=== PATIENT | female | born 1970 | race Caucasian/White ===

== ENCOUNTER 2017-10-02 09:08 | Inpatient (IN) | payer OTHER ==
[~2017-10-02] VITALS: Ht 165.1 cm; Wt 76.5 kg
[~2017-10-02 09:08] MED LIST: ASPI81 PO; CEPH500C3 PO; DYAZ37.52 PO; GLUCTAB PO
[2017-10-02] MEDS ORDERED: LISI-515 PO (09:28)
[2017-10-02] MEDS ORDERED: ASPI81CH7 CHEW (09:28)
[2017-10-02 09:30] VITALS: BP 169/89; PULSE 79; RESP 16; TEMP 98.2; O2SAT 97
--- NOTE | 2017-10-02 09:42 | PD ---
HPI Chief Complaint: Numbness/Tingling Time Seen by Provider: 09:30 Travel History International Travel<30 days: No Contact w/Intl Traveler<30days: No Traveled to known affect area: No History of Present Illness HPI This 47-year-old female says she has numbness on the right side of her body. She is a yesterday she started feeling some numbness around her mouth and face. It initially seemed to be bilateral. His last night it has been on the right side of the body. She says when she was younger she is to have symptoms where she would get numbness and weakness to the point where she was unable to speak. She is often associated with severe headaches. She has not had any of these episodes for some time. She says he is currently going through menopause and has not had a period in several months. She had called her doctor yesterday she had just been started on a new cholesterol medicine and that was stopped yesterday that might be an hour allergic reaction. He has not had trouble walking. She actually walked her dog this morning with the numbness PFSH Past Medical History Hx Anticoagulant Therapy: No High Cholesterol: Yes Diabetes: Yes Patient Takes Glucophage: No Diminished Hearing: No Hypertension: Yes Tetanus Vaccination: Unknown ?: Not Past Surgical History Gynecologic Surgery: Yes (D&C, FIBROIDS REMOVED) Social History Alcohol Use: No Tobacco Use: Yes (/ PPD) Substance Use: No Allergies-Medications (Allergen,Severity, Reaction): Coded Allergies: methocarbamol (Unverified Allergy, Mild, Rash, 10/02/17) Reported Meds & Prescriptions Reported Meds & Active Scripts Active Reported Lisinopril 20 Mg Tab 20 Mg PO DAILY Aspirin Children's (Aspirin) 81 Mg Chew 81 Mg CHEW DAILY Review of Systems General / Constitutional: No: Fever, Chills Eyes: No: Diploplia HENT: No: Headaches, Vertigo Cardiovascular: No: Chest Pain or Discomfort, Palpitations Respiratory: No: Cough, Shortness of Breath Gastrointestinal: No: Vomiting Genitourinary: No: Urgency, Frequency Musculoskeletal: No: Myalgias, Arthralgias Skin: No Rash Neurologic: Positive: Sensory Disturbance Endocrine: No: Heat Intolerance, Cold Intolerance Hematologic/Lymphatic: No: Easy Bruising Physical Exam Narrative GENERAL: Well-developed female SKIN: Focused skin assessment warm/dry. HEAD: Atraumatic. Normocephalic. EYES: Pupils equal and round. No scleral icterus. No injection or drainage. ENT: No nasal bleeding or discharge. Mucous membranes pink and moist. NECK: Trachea midline. No JVD. CARDIOVASCULAR: Regular rate and rhythm. No murmur appreciated. RESPIRATORY: No accessory muscle use. Clear to auscultation. Breath sounds equal bilaterally. GASTROINTESTINAL: Abdomen soft, non-tender, nondistended. Hepatic and splenic margins not palpable. MUSCULOSKELETAL: No obvious deformities. No clubbing. No cyanosis. No edema. NEUROLOGICAL: Awake and alert. No obvious cranial nerve deficits. Motor grossly within normal limits. Normal speech. There is diminished sensation on the right side of the body PSYCHIATRIC: Appropriate mood and affect; insight and judgment normal. Data Data Last Documented VS Vital Signs Date Time Temp Pulse Resp B/P (MAP) Pulse Ox O2 Delivery O2 Flow Rate FiO2 10/02/17 12:08 67 16 173/93 (119) 99 Room Air 10/02/17 09:30 98.2 Orders Orders Complete Blood Count With Diff (10/02/17 09:37) Comprehensive Metabolic Panel (10/02/17 09:37) Urinalysis - C+S If Indicated (10/02/17 09:37) Mri Brain W/O Contrast (10/02/17 09:37) Urine Culture (10/02/17 10:23) Aspirin (Aspirin) (10/02/17 12:45) Labs Laboratory Tests Test 10/02/17 09:39 10/02/17 10:23 White Blood Count 10.4 TH/MM3 Red Blood Count 4.45 MIL/MM3 Hemoglobin 13.3 GM/DL Hematocrit 39.6 % Mean Corpuscular Volume 88.8 FL Mean Corpuscular Hemoglobin 30.0 PG Mean Corpuscular Hemoglobin Concent 33.7 % Red Cell Distribution Width 12.3 % Platelet Count 208 TH/MM3 Mean Platelet Volume 10.0 FL Neutrophils (%) (Auto) 74.0 % Lymphocytes (%) (Auto) 18.4 % Monocytes (%) (Auto) 6.1 % Eosinophils (%) (Auto) 0.5 % Basophils (%) (Auto) 1.0 % Neutrophils # (Auto) 7.7 TH/MM3 Lymphocytes # (Auto) 1.9 TH/MM3 Monocytes # (Auto) 0.6 TH/MM3 Eosinophils # (Auto) 0.1 TH/MM3 Basophils # (Auto) 0.1 TH/MM3 CBC Comment DIFF FINAL Differential Comment Blood Urea Nitrogen 12 MG/DL Creatinine 0.55 MG/DL Random Glucose 233 MG/DL Total Protein 7.1 GM/DL Albumin 3.4 GM/DL Calcium Level 8.9 MG/DL Alkaline Phosphatase 128 U/L Aspartate Amino Transf (AST/SGOT) 21 U/L Alanine Aminotransferase (ALT/SGPT) 40 U/L Total Bilirubin 0.7 MG/DL Sodium Level 136 MEQ/L Potassium Level 3.9 MEQ/L Chloride Level 102 MEQ/L Carbon Dioxide Level 25.5 MEQ/L Anion Gap 9 MEQ/L Estimat Glomerular Filtration Rate 118 ML/MIN Urine Collection Type CLEAN CATCH Urine Color YELLOW Urine Turbidity CLEAR Urine pH 6.5 Urine Specific [place] LESS/EQUAL 1.005 Urine Protein NEG mg/dL Urine Glucose (UA) 250 mg/dL Urine Ketones NEG mg/dL Urine Occult Blood NEG Urine Nitrite NEG Urine Bilirubin NEG Urine Urobilinogen 0.2 MG/DL Urine Leukocyte Esterase NEG Urine WBC 0-2 /hpf Urine Squamous Epithelial Cells 0-5 /hpf Urine Amorphous Sediment FEW Urine Bacteria MOD /hpf Microscopic Urinalysis Comment CULTURE INDICATED Urine Collection Time 1023 MDM Medical Decision Making Medical Screen Exam Complete: Yes Emergency Medical Condition: Yes Medical Record Reviewed: Yes Differential Diagnosis Differential includes CVA, multiple sclerosis Narrative Course MRI was done and shows a small focal area of infarction in the left thalamus consistent with a lacunar infarct. This is consistent with a right hemisensory deficit. She took an aspirin last night. I will prescribe one now will be admitted Diagnosis Primary Impression: Acute CVA (cerebrovascular accident) Elijah Resendiz MD Oct 02, 2017 09:42
[2017-10-02 10:10] LABS: AUTOMATED NEUTROPHIL # 7.7 TH/MM3 (1.8-7.7); BASOPHIL # 0.1 TH/MM3 (0-0.2); EOSINOPHIL # 0.1 TH/MM3 (0-0.4); EOSINOPHIL % 0.5 % (0.0-4.0); HEMATOCRIT 39.6 % (35.0-46.0); HEMOGLOBIN 13.3 GM/DL (11.6-15.3); LYMPH % 18.4 % (9.0-44.0); LYMPHOCYTE # 1.9 TH/MM3 (1.0-4.8); MEAN CELL VOLUME 88.8 FL (80.0-100.0); MEAN CORPUSCULAR HGB CONC 33.7 % (32.0-36.0); MONO % 6.1 % (0.0-8.0); MONOCYTE # 0.6 TH/MM3 (0-0.9); PLATELET COUNT 208 TH/MM3 (150-450); RED BLOOD COUNT 4.45 MIL/MM3 (4.00-5.30); RED CELL DISTRIBUTION WIDTH 12.3 % (11.6-17.2); WHITE BLOOD COUNT 10.4 TH/MM3 (4.0-11.0)
[2017-10-02 10:17] LABS: CHLORIDE 102 MEQ/L (98-107); SODIUM (NA) 136 MEQ/L (136-145)
[2017-10-02 10:21] LABS: ALBUMIN 3.4 GM/DL (3.4-5.0); BICARBONATE 25.5 MEQ/L (21.0-32.0); CALCIUM 8.9 MG/DL (8.5-10.1); GLUCOSE,RANDOM 233 MG/DL (74-106)
[2017-10-02 10:22] LABS: BLOOD UREA NITROGEN 12 MG/DL (7-18)
[2017-10-02 10:24] LABS: ALT (GPT) 40 U/L (10-53)
[2017-10-02 10:25] LABS: AST (GOT) 21 U/L (15-37); CREATININE 0.55 MG/DL (0.50-1.00); GLOMERULAR FILTRATION RATE 118 ML/MIN (>89)
[2017-10-02 10:26] LABS: TOTAL PROTEIN 7.1 GM/DL (6.4-8.2)
[2017-10-02 10:27] LABS: ALKALINE PHOSPHATASE 128 U/L (45-117)
[2017-10-02 10:29] LABS: TOTAL BILIRUBIN ADULT 0.7 MG/DL (0.2-1.0)
[2017-10-02 10:50] LABS: BILIRUBIN, URINE NEG (NEG); BLOOD, URINE NEG (NEG); GLUCOSE,URINE 250 mg/dL (NEG); KETONE, URINE NEG (NEG); NITRITE,URINE NEG (NEG); PH, URINE 6.5 (5.0-8.5); URINE COLOR YELLOW (YELLW/STRAW); URINE LEUKOCYTE ESTERASE NEG (NEG)
[2017-10-02 10:56] LABS: AMORPHOUS SEDIMENT, URINE FEW; BACTERIA, URINE MOD /hpf; SQUAMOUS EPITHELIAL CELL URINE 0-5 /hpf (0-5); WBC, URINE 0-2 /hpf (0-5)
[2017-10-02 12:08] VITALS: BP 173/93; PULSE 67; RESP 16; O2SAT 99
--- NOTE | 2017-10-02 12:24 | RADRPT ---
EXAM DATE/TIME: 10/02/2017 11:34 [facility] COMPARISON: No previous studies available for comparison. INDICATIONS : Right sided weakness. MEDICAL HISTORY : Hypertension. Diabetes mellitus type 2. SURGICAL HISTORY : Fibroids ENCOUNTER: Initial ACUITY: 2 day PAIN SCORE: 0/10 LOCATION: head TECHNIQUE: Multiplanar, multisequence MRI of the brain was performed without contrast. FINDINGS: CEREBRUM: The ventricles are normal for age. No evidence of midline shift, mass lesion, hemorrhage or acute in farction. No extraaxial fluid collections are seen. The pituitary gland and suprasellar cistern are normal in configuration. WHITE MATTER: There is scattered focal small areas of increased signal within the cerebral white matter. POSTERIOR FOSSA: The cerebellum and brainstem are intact. The 4th ventricle is midline. The cerebellopontine angle is unremarkable. The cerebellar tonsils are normal in position. DIFFUSION IMAGING: There is a small focal area of signal abnormality on the diffusion weighted images at the left thalam us. EXTRACRANIAL: The visualized portions of the orbits and paranasal sinuses are unremarkable. CONCLUSION: 1. Small focal area of infarction in the left thalamus consistent with a lacunar infarct. 2. There few scattered small areas of focal demyelination seen in the cerebral white matter. Keenan Ireland MD on October 02, 2017 at 12:20 Board Certified Radiologist. This report was verified electronically.
[2017-10-02] MEDS ORDERED: ASPIRIN 325 MG TAB PO ONE (12:45)
[2017-10-02] MEDS: ASPIRIN 325 MG TAB PO SCH (13:30)
[2017-10-02] MEDS ORDERED: ENOXAPARIN SODIUM 40 MG/0.4 ML SYRINGE SQ SCH (13:30)
--- NOTE | 2017-10-02 15:28 | RADRPT ---
EXAM DATE/TIME: 10/02/2017 14:04 [facility] COMPARISON: No previous studies available for comparison. INDICATIONS : Acute CVA. MEDICAL HISTORY : Hypertension. Hypercholesterolemia. Diabetes. SURGICAL HISTORY : D & C. Fibroidectomy. ENCOUNTER: Initial ACUITY: 1 day PAIN SCORE: 0/10 LOCATION: Bilateral neck PEAK SYSTOLIC VELOCITIES (cm/sec): ICA/CCA RATIO: Right: 1.3 Left: 1.3 ICA: Right: 107 Left: 108 CCA: Right: 81 Left: 82 ECA: Right: 97 Left: 118 VERTEBRAL: Right: 61 antegrade Left: 66 antegrade Elevated flow velocities and ICA/CCA ratios have been found to correlate with increased degrees of vessel stenosis, calculated as percentage of diameter relative to a normal segment of distal ICA/CCA FINDINGS: RIGHT CAROTID: No significant stenosis is visualized. The waveforms are within normal limits. LEFT CAROTID: No significant stenosis is visualized. The waveforms are within normal limits. VERTEBRAL ARTERIES: Antegrade flow is seen in both vertebral arteries. MISCELLANEOUS: None. CONCLUSION: 1. No evidence of hemodynamically significant lesion. Xiang Major MD on October 02, 2017 at 15:25 Board Certified Radiologist. This report was verified electronically.
[2017-10-02 15:30] LABS: CHOLESTEROL 124 MG/DL (120-200)
[2017-10-02] MEDS: ENOXAPARIN SODIUM 40 MG/0.4 ML SYRINGE SQ SCH (15:34)
[2017-10-02] MEDS: ATORVASTATIN 40 MG TAB PO SCH (15:35)
[2017-10-02 15:37] VITALS: BP 144/93; PULSE 73; RESP 16; O2SAT 97
--- NOTE | 2017-10-02 15:42 | MH ---
cc: Mike Lopez MD DATE OF ADMISSION: 10/02/2017 ADMISSION DIAGNOSES: 1. Small lacunar infarct, left thalamus. 2. Hypertension. 3. Type 2 diabetes mellitus. 4. Hyperlipidemia. PERTINENT HISTORY: This is a 47-year-old white female who started to experience some numbness around her mouth last evening. This kind of progressed to later on getting some kind of tingling, numbness in her right arm and right leg. She thought maybe her right arm may have been a little bit weak at times when she would try to lift a coffee mug. She had no weakness in the leg. No slurring of her speech. No headache, no double vision, blurred vision. She denied any palpitations of her heart. Her symptoms she thought was originally from a medication she had just started on for cholesterol. She was put on rosuvastatin and she stopped that medication, but then her symptoms came back. When her symptoms persisted, she came to the emergency room where workup showed had included MRI of the brain that showed as mentioned a lacunar type infarct in the left thalamus. She was given an aspirin 325 mg in the ED and is admitted for further evaluation and neuro consult. MEDICAL HISTORY: She had type 2 diabetes mellitus for 10 years. She only took a medication briefly in the past; she did not know the name of it. She has been on high blood pressure medication in the past, but went to the ER a few months ago and was put on lisinopril 20 mg a day for blood pressure elevation. She had run out of that before she could get in with her new physician, Dr. Sandhu, who she just saw about 2 weeks ago and he kept her on lisinopril 20 mg a day. He also had done some blood work and she states her triglycerides were very high. She did not know what her cholesterol was, but she was just given rosuvastatin 20 mg a day that she just took in the last 2 days. She was not put on any medication for diabetes, but it sounds like her hemoglobin A1c was 7.0. She is supposed to have a followup appointment with Dr. Sandhu to go over her labs. She had only been on diet for diabetes and admitted that she had not been following that closely for a while. She denies any heart disease, liver or kidney disease. No thyroid disease. No prior stroke or seizures. No cancer. PAST SURGICAL HISTORY: She has had a D and C. She had a hysteroscopy with endometrial ablation and had a uterine myomectomy in the past. ALLERGIES: Her EHR has that she has had hives with Bactrim and rash with Robaxin. MEDICATIONS: She has just been on lisinopril 20 mg a day and only took a couple doses of the rosuvastatin 20 mg before stopping it yesterday. She is not on any other medication. FAMILY HISTORY: Her mother at 33 of a stroke and possibly had hypertension. Father at 37 of lung cancer. SOCIAL HISTORY: She is . She had been once. She smokes a pack a day and only started 10 years ago. She works doing housekeeping. She has an occasional glass of wine. REVIEW OF SYSTEMS: GENERAL: No fever or chills. HEENT: No vision complaints. No sore throat. CARDIOVASCULAR: No typical angina, no heart palpitations. No orthopnea, PND. PULMONARY: No cough, hemoptysis or wheezing. GASTROINTESTINAL: No abdominal pain, nausea, vomiting, constipation, diarrhea or rectal bleeding. GENITOURINARY: No dysuria, urgency, frequency or hematuria. EXTREMITIES: Without swelling. NEUROLOGIC: As mentioned. SKIN: Without rash. PSYCHIATRIC: Without complaints. PHYSICAL EXAMINATION: GENERAL: Obese white female in no acute distress. VITAL SIGNS: Her BP has ranged from 169/89-173/93. O2 saturations in the high 90s. Pulse 67, respirations 16, temperature 98.2. HEENT: TMs are clear. Nose negative. Pupils are equal. Sclerae nonicteric. Nose without lesion. Mouth without inflammation or lesion. NECK: Without bruit. No JVD. HEART: Regular rate and rhythm. No murmur. LUNGS: Clear. ABDOMEN: Soft, nontender. No masses. EXTREMITIES: No edema. Pulses 2 plus. SKIN: Negative. NEUROLOGIC: Motor strength is equal bilaterally. Cranial nerves intact. Sensation: She did not seem to have any definite decreased sensation on her right side compared to the left. She actually seemed to think it was a little more hypersensitive when I touched her. LABORATORY DATA: Her white count was 10.4, hemoglobin 13.3, platelets 208,000. Random glucose was 233. Lipid panel is pending. TSH and vitamin B12 level is pending. Hemoglobin A1c pending. Sodium 136, potassium 3.9, chloride 102, BUN 12, creatinine 0.55, GFR 118. Urinalysis showed glucose negative for protein or ketones, 0-2 WBCs. IMAGING STUDIES: MRI brain scan result as mentioned with a lacunar type infarct on the left thalamus and some few scattered small areas of focal demyelinization seen in the cerebral white matter. ASSESSMENT: As noted. PLAN: She has been given aspirin 325 mg a day. A Neurology consult has been placed. We will maintain her on lisinopril 20 mg a day for blood pressure. We will go ahead and put her back on rosuvastatin 20 mg a day. More than likely, she will need to go back on medication for diabetes and likely will initiate metformin, but will wait a couple of days in view of her just having had imaging studies done. We will use sequential compression devices and BEATRIZ hose for deep venous thrombosis prophylaxis. 2-D echo and carotid ultrasound have been ordered. She will be monitored on telemetry. Her stroke event likely happen 24 hours ago. If her tests are negative and Neurology clears her, hopefully she may be able to be discharged tomorrow. MD NAVA Méndez/SANTI , 02:38 PM , 03:41 PM
[2017-10-02 15:55] LABS: CHOLESTEROL/ HDL RATIO 3.81 RATIO; HDL CHOLESTEROL 32.5 MG/DL (40.0-60.0); TRIGLYCERIDES 450 MG/DL (42-150)
[2017-10-02 16:47] VITALS: BP 173/81; PULSE 69; RESP 20; TEMP 98.2; O2SAT 96
[2017-10-02] MEDS ORDERED: AMLO2.5T PO (17:09)
[2017-10-02] MEDS ORDERED: ROSU1TAB8 PO (17:09)
--- NOTE | 2017-10-02 17:29 | PD.CONS ---
History of Present Illness Service Neurology Consult Requested By medical Reason for Consult stroke Primary Care Physician Maikel Sandhu DO History of Present Illness 47-year-old female admitted for stroke. presented to er with >12 hr onset rt sided numbness. no significant weakness. acute onset that she thought would go away. smokes 1/2 ppd x years. no prior hx of stroke/tia. not on any blood thinners. ct brain naicp. mri brain showed left thalamic infarct. carotid u/s negative. mother with stroke at young onset. PFSH Past Medical History Hx Anticoagulant Therapy: No High Cholesterol: Yes Diabetes: Yes Patient Takes Glucophage: No Diminished Hearing: No Hypertension: Yes Tetanus Vaccination: Unknown ?: Not Past Surgical History Gynecologic Surgery: Yes (D&C, FIBROIDS REMOVED) Social History Alcohol Use: No Tobacco Use: Yes (1/2 PPD) Substance Use: No Allergies-Medications (Allergen,Severity, Reaction): Coded Allergies: methocarbamol (Unverified Allergy, Mild, Rash, 10/02/17) Reported Meds & Prescriptions Reported Meds & Active Scripts Active Reported Lisinopril 20 Mg Tab 20 Mg PO DAILY Aspirin Children's (Aspirin) 81 Mg Chew 81 Mg CHEW DAILY Review of Systems as above and admit hp Review of Systems All other ROS: ROS reviewed as documented in chart Past Family Social History Allergies: Coded Allergies: methocarbamol (Unverified Allergy, Mild, Rash, 10/02/17) Active Ordered Medications Current Medications Medications (Trade) Dose Ordered Sig/Miguel Route Start Time Stop Time Status Last Admin (Aspirin) 325 mg DAILY PO 10/02/17 13:30 (Lovenox Inj) 40 mg DAILY@1400 SQ 10/02/17 14:00 10/02/17 15:34 (Prinivil) 20 mg DAILY PO 10/03/17 09:00 (Lipitor) 40 mg DAILY PO 10/02/17 15:00 10/02/17 15:35 Exam I&O / VS Vital Signs Date Time Temp Pulse Resp B/P (MAP) Pulse Ox O2 Delivery O2 Flow Rate FiO2 10/02/17 16:47 98.2 69 20 173/81 (111) 96 10/02/17 16:26 10/02/17 15:37 73 16 144/93 (110) 97 Room Air 10/02/17 12:08 67 16 173/93 (119) 99 Room Air 10/02/17 09:30 98.2 79 16 169/89 (115) 97 10/02/17 09:26 16 97 Room Air General: Alert and Oriented, No acute distress Eye: EOMI Respiratory: Non-labored respirations Neurologic: Alert, Oriented, Normal motor, Normal DTR's Psychiatric: Cooperative, Appropriate mood & affect Exam Comments ox 3, no aphasia, follows, rt hemisensory no drift, Review/Management Diagnosis/Plan: (1) Thalamic infarct, acute ICD Codes: I63.9 - Cerebral infarction, unspecified Status: Acute Plan: tiny left thalamic infarct likely small vessel 2/2 tob/dm/htn however, young age of onset recs aspirin f/u echo cardio eval for derek/event monitor heme eval for hypercoag state. young age and mother with stroke tobacco cessation dm/lipid/bp control wt loss/exercise (2) HTN (hypertension) ICD Codes: I10 - Essential (primary) hypertension Status: Chronic Plan: bp <120/80 long-term goal (3) Diabetes ICD Codes: E11.9 - Type 2 diabetes mellitus without complications Status: Chronic Plan: needs to control dm (4) Tobacco abuse ICD Codes: Z72.0 - Tobacco use Status: Chronic Plan: cessation d/w pt Problem Qualifiers (1) HTN (hypertension): Qualified Codes: I10 - Essential (primary) hypertension Brian Diaz MD Oct 02, 2017 17:29
--- NOTE | 2017-10-02 17:31 | RADRPT ---
EXAM DATE/TIME: 10/02/2017 15:12 [facility] COMPARISON: No previous studies available for comparison. INDICATIONS : Right sided numbness. MEDICAL HISTORY : Hypertension. Diabetes mellitus type 2. SURGICAL HISTORY : Fibroids removed. ENCOUNTER: Initial ACUITY: 2 day PAIN SCORE: 0/10 LOCATION: head Please note a normal MRA of the brain does not entirely exclude the possibility of a small aneurysm, nor the possibility of distal intracranial vessel disease. TECHNIQUE: 3D time of flight MRA was performed. Source images, multiplanar STS MIP, and 3D volume MIP reconstru ctions were reviewed. FINDINGS: Anterior circulation: Distal intracranial internal carotid arteries are patent with flow extending to the middle and anteri or cerebral arteries. There is a saccular 5 mm aneurysm arising from the distal left M1 segment at th e MCA bifurcation. Suspect at least one inferior temporal branch arises from this aneurysm. Posterior circulation: Symmetric distal vertebral arteries with flow extending to basilar artery. There is no evidence for aneurysm, vessel truncation or stenosis, and no evidence for vascular malformation. CONCLUSION: 1. 5 mm distal left M1 segment saccular aneurysm. Suspect at least one inferior temporal branch arise s from this aneurysm. Recommend CTA examination for better characterization. George Milian MD on October 02, 2017 at 17:22 Board Certified Radiologist. This report was verified electronically.
[2017-10-02 20:00] VITALS: PULSE 70
[2017-10-03] VITALS (8 sets, daily range): BP systolic 116–172; BP diastolic 59–99; PULSE 61–70; RESP 12–22; TEMP 98–98.3; O2SAT 88–97
--- NOTE | 2017-10-03 07:18 | HHI.PR ---
Subjective Remarks Still has numbness on the right side. No other complaints. Objective Vitals Vital Signs Date Time Temp Pulse Resp B/P (MAP) Pulse Ox O2 Delivery O2 Flow Rate FiO2 10/03/17 03:53 98.3 70 15 146/76 (99) 88 10/03/17 01:09 98.0 68 14 130/76 (94) 95 10/02/17 20:00 70 10/02/17 16:47 98.2 69 20 173/81 (111) 96 10/02/17 16:26 10/02/17 15:37 73 16 144/93 (110) 97 Room Air 10/02/17 12:08 67 16 173/93 (119) 99 Room Air 10/02/17 09:30 98.2 79 16 169/89 (115) 97 10/02/17 09:26 16 97 Room Air Result Diagram: 10/02/17 0939 10/02/17 0939 Other Results Laboratory Tests Test 10/02/17 09:39 10/02/17 10:23 10/02/17 16:11 White Blood Count 10.4 TH/MM3 Red Blood Count 4.45 MIL/MM3 Hemoglobin 13.3 GM/DL Hematocrit 39.6 % Mean Corpuscular Volume 88.8 FL Mean Corpuscular Hemoglobin 30.0 PG Mean Corpuscular Hemoglobin Concent 33.7 % Red Cell Distribution Width 12.3 % Platelet Count 208 TH/MM3 Mean Platelet Volume 10.0 FL Neutrophils (%) (Auto) 74.0 % Lymphocytes (%) (Auto) 18.4 % Monocytes (%) (Auto) 6.1 % Eosinophils (%) (Auto) 0.5 % Basophils (%) (Auto) 1.0 % Neutrophils # (Auto) 7.7 TH/MM3 Lymphocytes # (Auto) 1.9 TH/MM3 Monocytes # (Auto) 0.6 TH/MM3 Eosinophils # (Auto) 0.1 TH/MM3 Basophils # (Auto) 0.1 TH/MM3 CBC Comment DIFF FINAL Differential Comment Erythrocyte Sedimentation Rate 11 mm/hr Blood Urea Nitrogen 12 MG/DL Creatinine 0.55 MG/DL Random Glucose 233 MG/DL Total Protein 7.1 GM/DL Albumin 3.4 GM/DL Calcium Level 8.9 MG/DL Alkaline Phosphatase 128 U/L Aspartate Amino Transf (AST/SGOT) 21 U/L Alanine Aminotransferase (ALT/SGPT) 40 U/L Total Bilirubin 0.7 MG/DL Sodium Level 136 MEQ/L Potassium Level 3.9 MEQ/L Chloride Level 102 MEQ/L Carbon Dioxide Level 25.5 MEQ/L Anion Gap 9 MEQ/L Estimat Glomerular Filtration Rate 118 ML/MIN Triglycerides Level 450 MG/DL Cholesterol Level 124 MG/DL HDL Cholesterol 32.5 MG/DL Cholesterol/HDL Ratio 3.81 RATIO Vitamin B12 Level 259 PG/ML Thyroid Stimulating Hormone 3rd Gen 0.826 uIU/ML Urine Collection Type CLEAN CATCH Urine Color YELLOW Urine Turbidity CLEAR Urine pH 6.5 Urine Specific [place] LESS/EQUAL 1.005 Urine Protein NEG mg/dL Urine Glucose (UA) 250 mg/dL Urine Ketones NEG mg/dL Urine Occult Blood NEG Urine Nitrite NEG Urine Bilirubin NEG Urine Urobilinogen 0.2 MG/DL Urine Leukocyte Esterase NEG Urine WBC 0-2 /hpf Urine Squamous Epithelial Cells 0-5 /hpf Urine Amorphous Sediment FEW Urine Bacteria MOD /hpf Microscopic Urinalysis Comment CULTURE INDICATED Urine Collection Time 1023 Imaging Last Impressions Brain MRI 10/02/17 0937 Signed Impressions: Service Date/Time: Monday, October 02, 2017 11:34 - CONCLUSION: 1. Small focal area of infarction in the left thalamus consistent with a lacunar infarct. 2. There few scattered small areas of focal demyelination seen in the cerebral white matter. Keenan Ireland MD Head Magnetic Resonance Angiography 10/02/17 Signed Impressions: Service Date/Time: Monday, October 02, 2017 15:12 - CONCLUSION: 1. 5 mm distal left M1 segment saccular aneurysm. Suspect at least one inferior temporal branch arises from this aneurysm. Recommend CTA examination for better characterization. George Milian MD Carotid Artery Ultrasound 10/02/17 Signed Impressions: Service Date/Time: Monday, October 02, 2017 14:04 - CONCLUSION: 1. No evidence of hemodynamically significant lesion. Xiang Major MD Objective Remarks Exam: Pleasant white female in no distress. HEENT: Pupils equal, sclera nonicteric, mouth negative Neck: No JVD, no bruit Heart: RRR with no murmur Lungs: Clear Abdomen: Soft, nontender, no masses Extremities: No edema, pulses in feet good Neuro: No motor deficits, CN intact A/P Assessment and Plan Assessment: --Left thalamic infarct --Hypertension --Hypertriglyceridemia --Type 2 diabetes mellitus --Possible 5mm distal left M1 segment saccular aneurysm --Smoker--patient states she is quitting Plan: Order CTA of the head to further evaluate the aneurysm Dr Owens has seen her and asked cardiology to see her and also hematology to see her to make sure she has no hypercoagulable state. Continue aspirin. Continue Lisinopril for hypertension. I will start her on Metformin but wait at least 48 hours after imaging studies. She can be discharged when cleared by consultants. Mike Lopez MD Oct 03, 2017 07:18
--- NOTE | 2017-10-03 07:51 | PD.CONS ---
HPI Consult Requested By Primary Care Physician Maikel Sandhu DO History of Present Illness 47-year-old female with a past medical history of HTN, HLD, DM, and tobacco abuse who presented for right-sided paresthesias. The patient was found to have acute small left thalamic infarct. No other neurologic symptoms other than right-sided numbness and tingling. Due to the patient's young age, neurology has consulted us for evaluation for CHARLOTTE and event monitor. The patient denies any chest pain, shortness of breath, or palpitations. EKG and telemetry reviewed which show no A. fib or other significant arrhythmia. (Ignacio Gilmore) Review of Systems Negative except as stated in the HPI (Ignacio Gilmore) Past Family Social History Allergies: Coded Allergies: methocarbamol (Unverified Allergy, Mild, Rash, 10/02/17) Past Medical History Hypertension Hyperlipidemia Diabetes mellitus Past Surgical History She has had a D and C. She had a hysteroscopy with endometrial ablation and had a uterine myomectomy in the past. Reported Medications Reported Meds & Active Scripts Active Reported Rosuvastatin (Rosuvastatin Calcium) 20 Mg Tab 20 Mg PO HS Amlodipine (Amlodipine Besylate) 2.5 Mg Tab 2.5 Mg PO DAILY Lisinopril 20 Mg Tab 20 Mg PO DAILY Active Ordered Medications Current Medications Medications (Trade) Dose Ordered Sig/Miguel Route Start Time Stop Time Status Last Admin (Aspirin) 325 mg DAILY PO 10/02/17 13:30 (Lovenox Inj) 40 mg DAILY@1400 SQ 10/02/17 14:00 10/02/17 15:34 (Prinivil) 20 mg DAILY PO 10/03/17 09:00 (Lipitor) 40 mg DAILY PO 10/02/17 15:00 10/02/17 15:35 Family History Her mother at 33 of a stroke and possibly had hypertension. Father at 37 of lung cancer. Social History She is . She had been once. She smokes a pack a day and only started 10 years ago. She works doing housekeeping. She has an occasional glass of wine. (Ignacio Gilmore) Physical Exam Vital Signs Vital Signs Date Time Temp Pulse Resp B/P (MAP) Pulse Ox O2 Delivery O2 Flow Rate FiO2 10/03/17 03:53 98.3 70 15 146/76 (99) 88 10/03/17 01:09 98.0 68 14 130/76 (94) 95 10/02/17 20:00 70 10/02/17 16:47 98.2 69 20 173/81 (111) 96 10/02/17 16:26 10/02/17 15:37 73 16 144/93 (110) 97 Room Air 10/02/17 12:08 67 16 173/93 (119) 99 Room Air 10/02/17 09:30 98.2 79 16 169/89 (115) 97 10/02/17 09:26 16 97 Room Air Physical Exam GENERAL: Well-developed well-nourished. In no acute distress. NECK: No carotid bruits. No JVD. CARDIOVASCULAR: Regular rate and rhythm. No murmur appreciated. RESPIRATORY: No accessory muscle use. Clear to auscultation. Breath sounds equal bilaterally. MUSCULOSKELETAL: No clubbing or cyanosis. No edema. NEUROLOGICAL: Awake and alert. Normal speech. Laboratory Laboratory Tests Test 10/02/17 09:39 10/02/17 10:23 10/02/17 16:11 White Blood Count 10.4 Red Blood Count 4.45 Hemoglobin 13.3 Hematocrit 39.6 Mean Corpuscular Volume 88.8 Mean Corpuscular Hemoglobin 30.0 Mean Corpuscular Hemoglobin Concent 33.7 Red Cell Distribution Width 12.3 Platelet Count 208 Mean Platelet Volume 10.0 Neutrophils (%) (Auto) 74.0 Lymphocytes (%) (Auto) 18.4 Monocytes (%) (Auto) 6.1 Eosinophils (%) (Auto) 0.5 Basophils (%) (Auto) 1.0 Neutrophils # (Auto) 7.7 Lymphocytes # (Auto) 1.9 Monocytes # (Auto) 0.6 Eosinophils # (Auto) 0.1 Basophils # (Auto) 0.1 CBC Comment DIFF FINAL Differential Comment Erythrocyte Sedimentation Rate 11 Blood Urea Nitrogen 12 Creatinine 0.55 Random Glucose 233 Total Protein 7.1 Albumin 3.4 Calcium Level 8.9 Alkaline Phosphatase 128 Aspartate Amino Transf (AST/SGOT) 21 Alanine Aminotransferase (ALT/SGPT) 40 Total Bilirubin 0.7 Sodium Level 136 Potassium Level 3.9 Chloride Level 102 Carbon Dioxide Level 25.5 Anion Gap 9 Estimat Glomerular Filtration Rate 118 Triglycerides Level 450 Cholesterol Level 124 HDL Cholesterol 32.5 Cholesterol/HDL Ratio 3.81 Vitamin B12 Level 259 Thyroid Stimulating Hormone 3rd Gen 0.826 Urine Collection Type CLEAN CATCH Urine Color YELLOW Urine Turbidity CLEAR Urine pH 6.5 Urine Specific Rhodelia LESS/EQUAL 1.005 Urine Protein NEG Urine Glucose (UA) 250 Urine Ketones NEG Urine Occult Blood NEG Urine Nitrite NEG Urine Bilirubin NEG Urine Urobilinogen 0.2 Urine Leukocyte Esterase NEG Urine WBC 0-2 Urine Squamous Epithelial Cells 0-5 Urine Amorphous Sediment FEW Urine Bacteria MOD Microscopic Urinalysis Comment CULTURE INDICATED Urine Collection Time 1023 Date/Time Source Procedure Growth Status 10/02/17 10:23 Urine Clean Catch Urine Culture Pending Received (Ignacio Gilmore) Result Diagram: 10/02/1793810/02/17938 Imaging Last Impressions Brain MRI 10/02/17936 Signed Impressions: Service Date/Time: Monday, October 02, 2017 11:34 - CONCLUSION: 1. Small focal area of infarction in the left thalamus consistent with a lacunar infarct. 2. There few scattered small areas of focal demyelination seen in the cerebral white matter. Keenan Ireland MD Head Magnetic Resonance Angiography 10/02/17 0000 Signed Impressions: Service Date/Time: Monday, October 02, 2017 15:12 - CONCLUSION: 1. 5 mm distal left M1 segment saccular aneurysm. Suspect at least one inferior temporal branch arises from this aneurysm. Recommend CTA examination for better characterization. George Milian MD Carotid Artery Ultrasound 10/02/17 0000 Signed Impressions: Service Date/Time: Monday, October 02, 2017 14:04 - CONCLUSION: 1. No evidence of hemodynamically significant lesion. Xiang Major MD (Ignacio Gilmore) Assessment and Plan Assessment and Plan 47-year-old female with a past medical history of HTN, HLD, DM, and tobacco abuse who presented for right-sided paresthesias. The patient was found to have acute small left thalamic infarct. No other neurologic symptoms other than right-sided numbness and tingling. Due to the patient's young age, neurology has consulted us for evaluation for CHARLOTTE and event monitor. The patient denies any chest pain, shortness of breath, or palpitations. EKG and telemetry reviewed which show no A. fib or other significant arrhythmia. Acute left thalamic CVA: Will need to decide on antiplatelet/anticoagulation, will plan for inpatient CHARLOTTE for definitive eval, transfer to main hospital. Follow-up as outpatient for possible event monitor. Discussed Condition With Patient, RN, Dr. Chris (Ignacio Gilmore) Assessment and Plan CHARLOTTE - no JAMEY thrombus. No PFO. No vegetations. No cardioembolic source. DC planning from cardio standpoint FU with neuro. no need for cardio followup (Jero Chris MD) Ignacio Gilmore Oct 03, 2017 07:51 Jero Chris MD Oct 03, 2017 14:32
[2017-10-03] MEDS ORDERED: LISINOPRIL 20 MG TAB PO SCH (09:00)
[2017-10-03] MEDS: ASPIRIN 325 MG TAB PO SCH (09:04)
[2017-10-03] MEDS: ATORVASTATIN 40 MG TAB PO SCH (09:04)
--- NOTE | 2017-10-03 14:42 | ECHRPT ---
Indication: stroke CONCLUSIONS Normal left ventricular size. Wall thickness is normal. Mild mitral valve regurgitation. The pulmonary valve is not well visualized. The left ventricular systolic function is normal with an estimated ejection fraction in the range of 60-65%. BP: / HR: Rhythm: MEASUREMENTS (Male / Female) Normal Values Technical Quality: 2D ECHO LV Diastolic Diameter PLAX 4.8 cm 4.2 - 5.9 / 3.9 - 5.3 cm IVS Diastolic Thickness 0.9 cm 0.6 - 1.0 / 0.6 - 0.9 cm LVPW Diastolic Thickness 0.7 cm 0.6 - 1.0 / 0.6 - 0.9 cm LV Relative Wall Thickness 0.3 RV Internal Dim ED PLAX 1.8 cm LA Systolic Diameter LX 3.0 cm 3.0 - 4.0 / 2.7 - 3.8 cm DOPPLER Mitral E Point Velocity 66.1 cm/s Mitral A Point Velocity 84.9 cm/s Mitral E to A Ratio 0.8 TR Peak Velocity 118.0 cm/s TR Peak Gradient 5.6 mmHg FINDINGS LEFT VENTRICLE Normal left ventricular size. Wall thickness is normal. The left ventricular systolic function is normal with an estimated ejection fraction in the range of 60-65%. RIGHT VENTRICLE Normal right ventricular size and systolic function. LEFT ATRIUM The left atrial size is normal. RIGHT ATRIUM The right atrial size is normal. ATRIAL SEPTUM Normal atrial septal thickness without atrial level shunting by limited color doppler interrogation. AORTA The aortic root and proximal ascending aorta are normal in size on limited imaging. MITRAL VALVE Mild mitral valve regurgitation. AORTIC VALVE Trileaflet aortic valve. No aortic valve stenosis or regurgitation. TRICUSPID VALVE Structurally normal tricuspid valve. No tricuspid valve stenosis or regurgitation. PULMONARY VALVE The pulmonary valve is not well visualized. VESSELS The inferior vena cava is normal in size. PERICARDIUM No pericardial effusion. Jero Chris MD, FACC (Electronically Signed) Final Date:03 October 2017 14:41
--- NOTE | 2017-10-03 14:49 | ECHRPT ---
Indication: CVA/TIA CONCLUSIONS Normal left ventricular size and wall thickness. The left ventricular systolic function is normal wi th an estimated ejection fraction in the range of 60-65%. Left ventricular diastolic function parameters a re normal. Normal left atrial appendage size with no evidence of thrombus formation. Structurally normal mitral valve. Mild mitral valve regurgitation. Structurally normal tricuspid valve. There is mild tricuspid valve regurgitation. BP: / HR: Rhythm: Technical Quality: Medications Complications Proc. Components The patient was brought to the diagnostic imaging area in a fasting state after o btaining an informed consent. The patient was premedicated with IV Versed and IV Fentanyl. The stock hanger ior pharynx was sprayed with Cetacaine spray and the patient was administered viscous Xylocaine 2 %. The CHARLOTTE probe was passed into the posterior pharynx , mid-esophagus, distal esophagus, and gastric fundus. CHARLOTTE was performed at multiple levels. The patient tolerated the procedure well and there were no complications. The patient was transferred to the floor in satisfactory condition.. FINDINGS LEFT VENTRICLE Normal left ventricular size and wall thickness. The left ventricular systolic function is normal wi th an estimated ejection fraction in the range of 60-65%. Left ventricular diastolic function parameters a re normal. RIGHT VENTRICLE Normal right ventricular size and systolic function. LEFT ATRIUM The left atrial size is normal. RIGHT ATRIUM The right atrial size is normal. ATRIAL APPENDAGES Normal left atrial appendage size with no evidence of thrombus formation. ATRIAL SEPTUM Normal atrial septal thickness without atrial level shunting by limited color doppler interrogation. AORTA The aortic root and proximal ascending aorta are normal in size on limited imaging. MITRAL VALVE Structurally normal mitral valve. Mild mitral valve regurgitation. AORTIC VALVE Trileaflet aortic valve. No aortic valve stenosis or regurgitation. TRICUSPID VALVE Structurally normal tricuspid valve. There is mild tricuspid valve regurgitation. VESSELS The inferior vena cava is normal in size. PULMONARY VALVE The pulmonary valve is not well visualized. PERICADIUM No pericardial effusion. Jero Chris MD, FACC (Electronically Signed) Final Date:03 October 2017 14:49
[2017-10-03] MEDS ORDERED: LISINOPRIL 10 MG TAB PO ONE (16:15)
[2017-10-03] MEDS ORDERED: IOHEXOL 350 MG/ML 10 ML VIAL (for RAD DIAG) IVCONTRAST ONE (17:02)
[2017-10-03] MEDS: ENOXAPARIN SODIUM 40 MG/0.4 ML SYRINGE SQ SCH (17:47)
--- NOTE | 2017-10-03 18:16 | RADRPT ---
EXAM DATE/TIME: 10/03/2017 16:46 [facility] COMPARISON: MRA BRAIN W/O CONTRAST, October 02, 2017, 15:12. INDICATIONS : Patient with right arm and right side of face numbness. IV CONTRAST: 70 cc Omnipaque 350 (iohexol) IV ; Cumulative dose for multiple exams. RADIATION DOSE: 24.29 CTDIvol (mGy) ; Combined studies MEDICAL HISTORY : Cerebrovascular disease. Cardiovascular disease Diabetes mellitus type 2.hypertension SURGICAL HISTORY : None. ENCOUNTER: Initial ACUITY: 1 day PAIN SCALE: 0/10 LOCATION: cranial TECHNIQUE: Volumetric scanning was performed using a multi-row detector CT scanner. The data was post processed with a variety of visualization algorithms including full volume maximum intensity projection, multi -planar sliding thin slab reformation, curved planar reformation, and surface rendering techniques. Using automated exposure control and adjustment of the mA and/or kV according to patient size, radiat ion dose was kept as low as reasonably achievable to obtain optimal diagnostic quality images. DICO M format image data is available electronically for review and comparison. FINDINGS: Anterior circulation: Distal intracranial internal carotid arteries are patent with flow extending to the middle and anteri or cerebral arteries. Redemonstration of a saccular distal right M1 aneurysm measuring 4 x 6 mm. Ther e is significant tortuosity at this level though suspect that the inferior temporal branch arises dir ectly from the aneurysm. Posterior circulation: Symmetric distal vertebral arteries with flow extending to basilar artery. There is no evidence for aneurysm, vessel truncation or stenosis, and no evidence for vascular malformation. CONCLUSION: 1. Redemonstration of 4 x 6 mm distal right M1 aneurysm. There is significant tortuosity at this leve l though the inferior temporal branch appears to arise from the aneurysm. George Milian MD on October 03, 2017 at 17:38 Board Certified Radiologist. This report was verified electronically.
[2017-10-03 18:21] LABS: HEMOGLOBIN A1C 8.3 % (4.3-6.0)
--- NOTE | 2017-10-03 18:45 | RADRPT ---
EXAM DATE/TIME: 10/03/2017 16:46 [facility] COMPARISON: No previous studies available for comparison. INDICATIONS : Patient with numbness right arm and right side of face. IV CONTRAST: 70 cc Omnipaque 350 (iohexol) IV ; Cumulative dose for multiple exams. RADIATION DOSE: 24.29 CTDIvol (mGy) ; Combined studies MEDICAL HISTORY : Cerebrovascular disease. Cardiovascular disease Diabetes mellitus type 2.hypertension SURGICAL HISTORY : None. ENCOUNTER: Initial ACUITY: 1 day PAIN SCALE: 0/10 LOCATION: neck Elevated flow velocities and ICA/CCA ratios have been found to correlate with increased degrees of vessel stenosis, calculated as percentage of diameter relative to a normal segment of distal ICA/CCA. TECHNIQUE: Volumetric scanning was performed using a multirow detector CT scanner. The data was post processed with a variety of visualization algorithms including full-volume maximum intensity projection, multip lanar sliding thin-slab reformation, curved-planar reformation, and surface-rendering techniques. Us ing automated exposure control and adjustment of the mA and/or kV according to patient size, radiatio n dose was kept as low as reasonably achievable to obtain optimal diagnostic quality images. DICOM f ormat image data is available electronically for review and comparison. FINDINGS: Great vessel origin this are patent. Both common carotid arteries are patent. There is eccentric plaque in the proximal right internal carotid artery with minimal stenosis of her 35%. The stenosis in the left internal carotid artery. No discrete aneurysm or dissection. CONCLUSION: 1. Eccentric plaque proximal right internal carotid artery with about 35% stenosis. CTA carotids othe rwise unremarkable. Napoleon Zhou MD on October 03, 2017 at 18:39 Board Certified Radiologist. This report was verified electronically.
[2017-10-03] MEDS: LISINOPRIL 20 MG TAB PO SCH (20:40)
[2017-10-03] MEDS: INSULIN ASPART SUPPLEMENTAL SCALE SQ SCH (21:00)
--- NOTE | 2017-10-03 21:46 | EKG ---
Date Performed: 10/02/2017 Time Performed: 09:21:37 PTAGE: 47 years EKG: Sinus rhythm MODERATE VOLTAGE CRITERIA FOR LVH, CONSIDER NORMAL VARIANT NONSPECIFIC T-WAVE ABNORMALITY BORDERLINE ECG PREVIOUS TRACING : 04/02/2006 11.49 Since the previous tracing, no significant change noted DOCTOR: Reza Carrasco Interpretating Date/Time 10/03/2017 21:45:23
--- NOTE | 2017-10-03 23:48 | MB ---
cc: Piero Betancourt MD DATE: 10/03/2017 REASON FOR CONSULTATION: Consult requested by neurologist, Dr. Diaz for evaluation of hypercoagulable state in a patient who is admitted for left CVA. HISTORY OF PRESENT ILLNESS: This is a 47-year-old [facility] female. She has a history of hypertension, hypercholesterolemia and diabetes mellitus. She was in her usual status of health up until recently. She noticed a numbness at the tip of the tongue. She was recently started on cholesterol medication and she thought that she may be having some allergic reaction from that. She stopped taking the cholesterol medication. However, the numbness at the tip of the tongue remains the same. Subsequently, she noticed numbness on the right side of the body, 2 nights ago. She decided to take the aspirin and waited to go see her primary physician, Dr. Sandhu the next day. However, when she woke up in the morning, she still had weakness and numbness on the right side of the body. One of her daughters is a registered nurse. She was advised to come to the emergency room. When the patient came into the emergency room, she had an MRI of the brain which showed a left thalamic infarct. Neurology was consulted. The patient was not a candidate for the TPA since she was outside of the window for that. The patient was started on Lovenox and an aspirin. Dr. Diaz, neurologist, saw the patient. He had recommended a cardiology consult for CHARLOTTE and hematology consult for hypercoagulable state. The patient was transferred to [facility] from [facility] to see a health claims examiner for CHARLOTTE. The patient underwent CHARLOTTE today which does not show any intracardiac thrombosis or PFO. Cardiologists have signed off on the case. The patient has been on aspirin and Lovenox. She states that her numbness is improving from the right side. She is anxious to go home. The rest of the review of system is negative. The patient denies any previous history of thromboembolic disease. She does not have any family history of thromboembolic disease except her mother in her 30s from a severe stroke. PAST MEDICAL HISTORY: 1. Diabetes mellitus. 2. Hypercholesterolemia. 3. Hypertension. PAST SURGICAL HISTORY: Fibroids were removed. ALLERGIES: ROBAXIN. MEDICATIONS: Prior to coming into the hospital were lisinopril, amlodipine and rosuvastatin. FAMILY HISTORY: Mother from a stroke in her 30s. Father from lung cancer. He was a smoker. The patient has 2 daughters, one of the daughter is a registered nurse. SOCIAL HISTORY: The patient is . The patient smoked cigarettes, one pack a day for many years and she said that she is going to quit. Her last cigarette was prior to being admitted to the hospital. Drinks alcohol socially. 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 The patient was born in [facility] and moved to [facility] in [place]. PHYSICAL EXAMINATION: GENERAL: This is a well-developed, well-nourished white female, in no apparent distress. VITAL SIGNS: Temperature 98, heart rate 70, blood pressure 116/59. HEAD, EYES, EARS, NOSE, AND THROAT: Pupils equal, round, reactive to light and accommodation, extraocular movements intact. Anicteric. No oral lesions noted. No thrush noted. NECK: Supple. No JVD. No masses noted. LUNGS: Clear. No wheezing, rhonchi, or rales. HEART: Regular rate and rhythm. No murmur heard. ABDOMEN: Soft and nontender. No hepatosplenomegaly. No abnormal bowel sounds. No guarding or rigidity noted. EXTREMITIES: No pedal edema. No cyanosis, no clubbing. NEUROLOGIC: Awake, alert, oriented x 3. Sensory and motor seem to be intact. SKIN: No bruises or petechiae noted. BREASTS: No masses noted. LYMPH NODES: No cervical, supraclavicular, or axillary lymphadenopathy noted. BACK: There is no spinal tenderness noted. ASSESSMENT: Left cerebrovascular accident with right-sided paresthesias currently on Lovenox and an aspirin. PLAN: I have reviewed her available records, and I have discussed with the patient regarding her acute stroke. It is unclear at this time, the etiology. I will order the hypercoagulable panel and it will take 2 weeks to get the results. Therefore, from my standpoint, patient could be discharged and will be followed as an outpatient for her hypercoagulable workup. She has been evaluated by Dr. Diaz, neurologist. The patient is anxious to go home. After drawing blood tests tomorrow then she will discuss with neurology, Dr. Diaz for possible discharge to home. The patient's mother from major stroke in her 30s. I will see the patient back in 2-3 weeks in our office to go over the results of the hypercoagulable panel. Thank you for asking my opinion. MD CASS Moses/rt , 10:46 PM , 11:47 PM
[2017-10-04 00:15] VITALS: BP 118/62; PULSE 69; RESP 18; TEMP 98.8; O2SAT 95
[2017-10-04 03:56] VITALS: PULSE 75
[2017-10-04 05:45] VITALS: BP 120/59; PULSE 66; RESP 17; TEMP 98; O2SAT 94
[2017-10-04] MEDS: INSULIN ASPART SUPPLEMENTAL SCALE SQ SCH ×2 (08:00→12:00)
[2017-10-04 08:13] VITALS: BP 114/58; PULSE 63; RESP 20; TEMP 98; O2SAT 93
[2017-10-04] MEDS ORDERED: ASA325 PO (08:45)
[2017-10-04] MEDS ORDERED: ATOR40TA16 PO (08:45)
--- NOTE | 2017-10-04 08:58 | HHI.DS ---
Discharge Summary Admission Date Oct 02, 2017 at 12:45 Discharge Date: Oct 04, 2017 Admitting Diagnosis ACUTE CVA (1) Acute CVA (cerebrovascular accident) Diagnosis: Principal ICD Codes: I63.9 - Cerebral infarction, unspecified Status: Acute (2) Thalamic infarct, acute Diagnosis: Principal ICD Codes: I63.9 - Cerebral infarction, unspecified Status: Acute (3) Diabetes Diagnosis: Secondary ICD Codes: E11.9 - Type 2 diabetes mellitus without complications Status: Chronic (4) Tobacco abuse Diagnosis: Secondary ICD Codes: Z72.0 - Tobacco use Status: Chronic (5) HTN (hypertension) Diagnosis: Secondary ICD Codes: I10 - Essential (primary) hypertension Status: Chronic (6) Hyperlipemia Diagnosis: Secondary ICD Codes: E78.5 - Hyperlipidemia, unspecified Consultants Dr. Diaz, Neurology Dr. Chris, Cardiology Dr. Betancourt, Hematology Procedures [place] 10/03/[address] Chris Brief History This is a 47-year-old white female who started to experience some numbness around her mouth last evening. This kind of progressed to later on getting some kind of tingling, numbness in her right arm and right leg. She thought maybe her right arm may have been a little bit weak at times when she would try to lift a coffee mug. She had no weakness in the leg. No slurring of her speech. No headache, no double vision, blurred vision. She denied any palpitations of her heart. Her symptoms she thought was originally from a medication she had just started on for cholesterol. She was put on rosuvastatin and she stopped that medication, but then her symptoms came back. When her symptoms persisted, she came to the emergency room where workup showed had included MRI of the brain that showed as mentioned a lacunar type infarct in the left thalamus. She was given an aspirin 325 mg in the ED and is admitted for further evaluation and neuro consult. CBC/BMP: 10/02/17 0939 10/02/17 0939 Significant Findings Laboratory Tests Test 10/02/17 09:39 10/02/17 10:23 10/02/17 16:11 10/04/17 07:00 Neutrophils (%) (Auto) 74.0 % (16.0-70.0) Random Glucose 233 MG/DL (74-106) Alkaline Phosphatase 128 U/L (45-117) Hemoglobin A1c 8.3 % (4.3-6.0) Triglycerides Level 450 MG/DL (42-150) HDL Cholesterol 32.5 MG/DL (40.0-60.0) Urine Glucose (UA) 250 mg/dL (NEG) Urine Bacteria MOD /hpf (NONE) Imaging Last Impressions Neck CTA 10/03/17 1635 Signed Impressions: Service Date/Time: Tuesday, October 03, 2017 16:46 - CONCLUSION: 1. Eccentric plaque proximal right internal carotid artery with about 35%% stenosis. CTA carotids otherwise unremarkable. Napoleon Zhou MD Head CTA 10/03/17 1635 Signed Impressions: Service Date/Time: Tuesday, October 03, 2017 16:46 - CONCLUSION: 1. Redemonstration of 4 x 6 mm distal right M1 aneurysm. There is significant tortuosity at this level though the inferior temporal branch appears to arise from the aneurysm. George Milian MD Brain MRI 10/02/17 0937 Signed Impressions: Service Date/Time: Monday, October 02, 2017 11:34 - CONCLUSION: 1. Small focal area of infarction in the left thalamus consistent with a lacunar infarct. 2. There few scattered small areas of focal demyelination seen in the cerebral white matter. Keenan Ireland MD Head Magnetic Resonance Angiography 10/02/17 0000 Signed Impressions: Service Date/Time: Monday, October 02, 2017 15:12 - CONCLUSION: 1. 5 mm distal left M1 segment saccular aneurysm. Suspect at least one inferior temporal branch arises from this aneurysm. Recommend CTA examination for better characterization. George Milian MD Carotid Artery Ultrasound 10/02/17 0000 Signed Impressions: Service Date/Time: Monday, October 02, 2017 14:04 - CONCLUSION: 1. No evidence of hemodynamically significant lesion. Xiang Major MD PE at Discharge Exam: Pleasant white female in no distress. HEENT: Pupils equal, sclera nonicteric, mouth negative Neck: No JVD, no bruit Heart: RRR with no murmur Lungs: Clear Abdomen: Soft, nontender, no masses Extremities: No edema, pulses in feet good Neuro: No motor deficits, CN intact Hospital Course Left thalamic infarct - [place] 10/03/17- no JAMEY thrombus. No PFO. No vegetations. No cardioembolic source. - DC from cardio standpoint per cardiology no need for cardio followup - Brain MRI revealed small focal area of infarction in the thalamus consistent with a lacunar infarct. There are few scattered small areas of focal demyelination seen in the cerebral white matter. - MRA of the head reveals 5 mm distal left M one segment saccular aneurysm. Suspect at least one inferior temporal branch arises from this aneurysm. Recommend CT examination for better characterization. - CT of the head reviewed and reveals re demonstration of a 4 x 6 mm distal right M one aneurysm. There is significant tortuosity at this level though the inferior temporal branch appears to arise from the aneurysm - Carotid artery ultrasound reveals no evidence of hemodynamically significant lesion - Patient's mother secondary to CVA in her 30s - Hematology consulted for evaluation and hypercoagulable workup. Patient seen by Dr. Betancourt laboratory data ordered and collected however the results can take up to 2 weeks patient to follow up outpatient with hematology in approximately 3 weeks - Continue aspirin daily - Cleared by neurology, cleared by cardiology and cleared by Hematology - recommend patient follow up with neurosurgeon Dr. Navarro as an outpatient for surveillance of aneurysm Hypertension - Continue home lisinopril and amlodipine Hyperlipidemia - Atorvastatin 40 mg by mouth daily at bedtime Type 2 diabetes mellitus - Patient currently on sliding scale insulin coverage Will resume metformin 48 hours after contrasted scan Current tobacco abuse - patient states she is quitting - Patient counseled encouraged to abstain from tobacco completely Pt Condition on Discharge: Stable Discharge Disposition: Discharge Home Discharge Instructions DIET: Follow Instructions for: Heart Healthy Diet, Diabetic Diet Activities you can perform: Regular-No Restrictions Follow up Referrals: Neurology - 2 Weeks with Brian Diaz MD Neurosurgery - 2 Weeks with Neri Navarro MD Oncology/Hematology - 3 Weeks with Dayne Betancourt MD PCP Follow-up - [address] Sandhu New Medications: Metformin ER (Metformin ER) 500 Mg Twila 500 MG PO DAILY for Blood Sugar Management for 30 Days, #30 TAB 0 Refills With evening meal Aspirin (Px Aspirin) 325 Mg Tab 325 MG PO DAILY for Blood Clot Prevention, #30 TAB 0 Refills Atorvastatin (Atorvastatin) 40 Mg Tab 40 MG PO DAILY for Cholesterol Management, #30 TAB 0 Refills Continued Medications: Amlodipine (Amlodipine) 2.5 Mg Tab 2.5 MG PO DAILY for Blood Pressure Management, #30 TAB 0 Refills Lisinopril (Lisinopril) 20 Mg Tab 20 MG PO DAILY, #30 TAB 0 Refills Discontinued Medications: Rosuvastatin (Rosuvastatin) 20 Mg Tab 20 MG PO HS for Cholesterol Management, #30 TAB 0 Refills Additional Information Patient examined. Assessment and plan formulated with Marquita Gallo PA-C. I agree with the above. Marquita Gallo Oct 04, 2017 08:58 Joel Vasquez DO Oct 05, 2017 23:41
--- NOTE | 2017-10-04 08:59 | HHI.DCPOC ---
Discharge Care Plan Diagnosis: (1) Thalamic infarct, acute (2) Type 2 diabetes mellitus (3) Tobacco abuse (4) HTN (hypertension) Goals to Promote Your Health * To prevent worsening of your condition and complications * To maintain your health at the optimal level Directions to Meet Your Goals Take your medications as prescribed Follow your dietary instruction Follow activity as directed Keep your appointments as scheduled Take your immunizations and boosters as scheduled If your symptoms worsen call your PCP, if no PCP go to Urgent Care Center or Emergency Room Smoking is Dangerous to Your Health. Avoid second hand smoke Call the 24-hour hour crisis hotline for domestic abuse at Marquita Gallo Oct 04, 2017 08:59 Joel Vasquez DO Oct 05, 2017 23:40
--- NOTE | 2017-10-04 09:52 | HHI.PR ---
Review/Management Diagnosis/Plan: (1) Thalamic infarct, acute ICD Codes: I63.9 - Cerebral infarction, unspecified Status: Acute Plan: tiny left thalamic infarct likely small vessel 2/2 tob/dm/htn however, young age of onset recs aspirin f/u echo cardio eval- derek negative. event monitor per cards heme- f/u outpatient labs ok to d/c from neuro and outpatient f/u tobacco cessation dm/lipid/bp control wt loss/exercise (2) HTN (hypertension) ICD Codes: I10 - Essential (primary) hypertension Status: Chronic Plan: bp <120/80 long-term goal (3) Diabetes ICD Codes: E11.9 - Type 2 diabetes mellitus without complications Status: Chronic Plan: needs to control dm (4) Tobacco abuse ICD Codes: Z72.0 - Tobacco use Status: Chronic Plan: cessation d/w pt Subjective Subjective Comments No acute events reported No headache No chest pain No dyspnea Active Medications Current Medications Medications (Trade) Dose Ordered Sig/Miguel Route Start Time Stop Time Status Last Admin (Aspirin) 325 mg DAILY PO 10/02/17 13:30 10/03/17 09:04 (Lovenox Inj) 40 mg DAILY@1400 SQ 10/02/17 14:00 10/03/17 17:47 (Lipitor) 40 mg DAILY PO 10/02/17 15:00 10/03/17 09:04 (NovoLOG SUPPLEMENTAL SCALE) 1 ACHS SLIDING SCALE SQ 10/03/17 21:00 (Prinivil) 20 mg BID PO 10/03/17 21:00 Allergies Allergies Coded Allergies methocarbamol (Unverified Allergy, Mild, Rash, 10/02/17) Review of Systems All other ROS: ROS reviewed as documented in chart Exam I&O / VS Vital Signs Date Time Temp Pulse Resp B/P (MAP) Pulse Ox O2 Delivery O2 Flow Rate FiO2 10/04/17 08:13 98.0 63 20 114/58 (76) 93 10/04/17 05:45 98.0 66 17 120/59 (79) 94 10/04/17 03:56 75 10/04/17 00:15 98.8 69 18 118/62 (80) 95 10/03/17 23:51 62 10/03/17 21:50 61 10/03/17 21:00 98.0 70 17 116/59 (78) 94 10/03/17 12:37 98.2 66 12 172/68 (102) 97 General: Alert and Oriented, No acute distress Eye: EOMI Respiratory: Non-labored respirations Neurologic: Alert, Oriented, Normal motor, Normal DTR's Psychiatric: Cooperative, Appropriate mood & affect Exam Comments ox 3, no aphasia, follows, rt hemisensory no drift, Objective Micro and Labs Laboratory Tests Test 10/04/17 07:00 Date/Time Source Procedure Growth Status 10/02/17 10:23 Urine Clean Catch Urine Culture - Final 50-100,000 CFU/ML MIXED JULIA... Complete Problem Qualifiers (1) HTN (hypertension): Qualified Codes: I10 - Essential (primary) hypertension Brian Diaz MD Oct 04, 2017 09:52
--- NOTE | 2017-10-04 10:19 | PD.ONC.PN ---
Subjective Subjective Remarks Afebrile overnight. Patient seen walking around unit with daughter. she states she feels well. denies weakness. Objective Data Date Time Temp Pulse Resp B/P (MAP) Pulse Ox O2 Delivery O2 Flow Rate FiO2 10/04/17 08:13 98.0 63 20 114/58 (76) 93 10/04/17 05:45 98.0 66 17 120/59 (79) 94 10/04/17 03:56 75 10/04/17 00:15 98.8 69 18 118/62 (80) 95 10/03/17 23:51 62 10/03/17 21:50 61 10/03/17 21:00 98.0 70 17 116/59 (78) 94 10/03/17 12:37 98.2 66 12 172/68 (102) 97 10/04/17 10/04/17 10/04/17 07:00 15:00 23:00 Intake Total 700 ml Balance 700 ml Result Diagram: 10/02/1739 10/02/17938 Laboratory Results Laboratory Tests Test 10/04/17 07:00 Culture Results Microbiology Date/Time Source Procedure Growth Status 10/02/17 10:23 Urine Clean Catch Urine Culture - Final 50-100,000 CFU/ML MIXED JULIA... Complete Imaging Studies Last 24 hours Impressions Neck CTA 10/03/171634 Signed Impressions: Service Date/Time: Tuesday, October 03, 2017 16:46 - CONCLUSION: 1. Eccentric plaque proximal right internal carotid artery with about 35%% stenosis. CTA carotids otherwise unremarkable. Napoleon Zhou MD Head CTA 10/03/171634 Signed Impressions: Service Date/Time: Tuesday, October 03, 2017 16:46 - CONCLUSION: 1. Redemonstration of 4 x 6 mm distal right M1 aneurysm. There is significant tortuosity at this level though the inferior temporal branch appears to arise from the aneurysm. George Milian MD Administered Medications Medications (Trade) Dose Ordered Sig/Miguel Route PRN Reason Start Time Stop Time Status Last Admin Dose Admin Aspirin (Aspirin) 325 mg DAILY PO 10/02/17 13:30 10/03/17 09:04 Enoxaparin Sodium (Lovenox Inj) 40 mg DAILY@1400 SQ 10/02/17 14:00 10/03/17 17:47 Atorvastatin Calcium (Lipitor) 40 mg DAILY PO 10/02/17 15:00 10/03/17 09:04 Objective Remarks GENERAL: Pleasant middle aged female, sitting up in bed in nad. SKIN: Warm and dry. HEAD: Normocephalic. EYES: No injection or drainage. NECK: Supple, trachea midline. CARDIOVASCULAR: Regular rate and rhythm RESPIRATORY: Breath sounds equal bilaterally. No accessory muscle use. GASTROINTESTINAL: Abdomen soft, non-tender, nondistended. EXTREMITIES: No cyanosis NEUROLOGICAL: awake and alert. normal speech. moving all extremities. facial movements symmetric. Assessment/Plan Problem List: (1) concern for underlying hypercoagulable state Plan: 10/04: hypercoagulable panel remains pending. face sheet faxed to new patient referrals for follow up in 1-2 weeks. we will review the results of the panel in clinic. hematology will sign off. please call or reconsult if needed. --CVA with unclear etiology (2) Acute CVA (cerebrovascular accident) ICD Codes: I63.9 - Cerebral infarction, unspecified Status: Acute Plan: --on Lovenox and ASA --Left cerebrovascular accident with right-sided paresthesias Assessment 47y/o female admitted with left CVA. Hematology consulted for evaluation of hypercoagulable state. history of hypertension, hypercholesterolemia and diabetes mellitus. Attending Statement The exam, history, and the medical decision-making described in the above note were completed with the assistance of the mid-level provider. I reviewed and agree with the findings presented. I attest that I had a [id number] encounter with the patient on the same day, and personally performed and documented my assessment and findings in the medical record. No new c/o Anxious to go home. Hypercoag w/u order. Stop smoking. Ok to d/c FU offfice 2-3 weeks sign off Kaia Hernandez Oct 04, 2017 10:18 Dayne Betancourt MD Oct 04, 2017 12:53
[2017-10-04] MEDS: ATORVASTATIN 40 MG TAB PO SCH (10:49)
[2017-10-04] MEDS: LISINOPRIL 20 MG TAB PO SCH (10:49)
[2017-10-04] MEDS: ASPIRIN 325 MG TAB PO SCH (10:49)
[2017-10-04 11:32] VITALS: BP 127/69; PULSE 71; RESP 20; TEMP 97.8; O2SAT 95
[2017-10-04] MEDS ORDERED: METF500T4 PO (13:57)
[2017-10-04] MEDS: ENOXAPARIN SODIUM 40 MG/0.4 ML SYRINGE SQ SCH (14:00)
[2017-10-05 23:53] LABS: ANTI-THROMBIN III ACT 74 (80-120); HOMOCYSTEINE 4.8 umol/L (<10.4)
[2017-10-06 03:52] LABS: DRVVT 1:1 MIX ND (CORRECTED); DRVVT CONFIRM ND (NEGATIVE); HEXAGONAL PHASE CONFIRM NEGATIVE (NEGATIVE)
[2017-10-08 18:16] LABS: PROTEIN C ACTIVITY 95 % (70 - 150); PROTEIN S ACTIVITY 100 % (50 - 160)
[2017-10-10 13:30] LABS: CARDIOLIPIN IGG AB <9.4 GPL; CARDIOLIPIN IGM AB <9.4 MPL
== END 2017-10-04 15:28 | disposition home or self-care (01) | DRG 66 ==
LOC: PHED 09:08 → PHEDA 12:45 → PHICU 16:34 → N05A 10-03 17:14
PROVIDERS: ADMIT Hospitalist; ATTEND Hospitalist
PROC: B246ZZ4 Ultrasonography of Right and Left Heart, Transesophageal (ICD-10-PCS; principal; 2017-10-03)
DX: I63.9 Cerebral infarction, unspecified (principal); I10 Essential (primary) hypertension; E78.5 Hyperlipidemia, unspecified; E11.9 Type 2 diabetes mellitus without complications; F17.210 Nicotine dependence, cigarettes, uncomplicated; R20.0 Anesthesia of skin; E78.1 Pure hyperglyceridemia; Z88.8 Allergy status to other drugs, medicaments and biological substances; Z82.3 Family history of stroke
CPT/HCPCS: 70496; 70498; 70544; 70551; 80053; 80061; 81001; 81240; 81241; 82607; 82948; 83036; 83090; 84443; 85025; 85300; 85303; 85306; 85598; 85613; 85652; 85730; 86038; 86147; 87086; 93005; 93306; 93312; 93320; 93325; 93880; 99285; J1650; J1815; Q9967

== ENCOUNTER 2018-01-20 00:56 | Inpatient (IN) ==
[2018-01-20] MEDS ORDERED: Sod Chloride 0.9% Inj 1,000 ML IV.CONT SCH (02:00)
[2018-01-20] MEDS ORDERED: Famotidine PF Inj 20 MG/2 ML Vial IV.PUSH ONE (02:07)
[2018-01-20] MEDS ORDERED: MethylPREDNISolone Sod Succinate Inj 125 MG/2 ML Vial IV.PUSH ONE (02:07)
[2018-01-20 02:14] LABS: Baso % (Auto) 0.4 % (0.0-2.0); Eos # (Auto) 0.1 th/mm3 (0.0-0.4); Eos % (Auto) 0.5 % (0.0-4.0); Hematocrit 39.6 % (35.0-46.0); Hemoglobin 14.2 gm/dL (11.6-15.3); Lymph # (Auto) 2.9 th/mm3 (1.0-4.8); Lymph % (Auto) 25.6 % (9.0-44.0); Mean Corpuscular HGB Conc 35.9 % (32.0-36.0); Mean Corpuscular Hemoglobin 31.5 pg (27.0-34.0); Mean Corpuscular Volume 87.7 fL (80.0-100.0); Mean Platelet Volume 8.8 fL (7.0-11.0); Mono % (Auto) 8.6 % (0.0-8.0); Neut # (Auto) 7.5 th/mm3 (1.8-7.7); Neut % (Auto) 64.9 % (16.0-70.0); Platelet Count 301 th/mm3 (150-450); Red Blood Count 4.51 mil/mm3 (4.00-5.30); White Blood Count 11.5 th/mm3 (4.0-11.0)
--- NOTE | 2018-01-20 02:15 | CT ---
EXAM DATE: 01/20/2018 2:04 AM EDT AGE/SEX: 47 years / Female INDICATIONS: Stroke alert. Episode of vision changes in left eye; resolved. CLINICAL DATA: This is the patient's initial encounter. Patient reports that signs and symptoms have been present for 1 day and indicates a pain score of 0/10. MEDICAL/SURGICAL HISTORY: Aneurysm, intracranial. . Aneurysm clipping RADIATION DOSE: 56.35 CTDI (mGy) COMPARISON: [facility] [place], CTA BRAIN W 3D RECON, 10/03/2017. . TECHNIQUE: CT of the head without contrast. Using automated exposure control and adjustment of the mA and/or kV according to patient size, radiation dose was kept as low as reasonably achievable to ob tain optimal diagnostic quality images. DICOM format image data is available electronically for revi ew and comparison. FINDINGS: Cerebrum: Postsurgical features of distal right MCA aneurysm coiling. The ventricles are normal for age. No evidence of midline shift, mass lesion, hemorrhage or acute infarction. No extraaxial fluid collections are seen. Posterior Fossa: The cerebellum and brainstem are intact. The 4th ventricle is midline. The cerebe llopontine angle is unremarkable. Extracranial: The visualized portion of the orbits is intact. Skull: The calvaria is intact. No evidence of skull fracture. CONCLUSION: 1. Postsurgical features of distal right MCA stent and aneurysm coiling. 2. No acute intracranial abnormality. Report was called by Dr. Chung to Dr. Campbell at 0211] Electronically signed by: George Milian MD 01/20/2018 2:13 AM EDT
--- NOTE | 2018-01-20 02:18 | XR ---
EXAM DATE: 01/20/2018 2:11 AM EDT AGE/SEX: 47 years / Female INDICATIONS: STROKE ALERT. CLINICAL DATA: This is the patient's initial encounter. Patient reports that signs and symptoms have been present for 1 day and indicates a pain score of 0/10. MEDICAL/SURGICAL HISTORY: . Hypertension. Diabetes mellitus type 2. . Fibroids COMPARISON: No prior exams available for comparison. FINDINGS: A single AP view of the chest demonstrates the lungs to be symmetrically aerated without evidence of mass, infiltrate or effusion. The cardiomediastinal contours are unremarkable. Osseous structures a re intact. CONCLUSION: 1. No acute cardiopulmonary disease. Electronically signed by: George Milian MD 01/20/2018 2:16 AM EDT
[2018-01-20 02:37] LABS: Prothrombin Time 10.1 sec (9.8-11.6)
[2018-01-20 02:38] LABS: Activated Partial Thrombo Time 26.7 sec (24.3-30.1)
[2018-01-20 02:39] LABS: Anion Gap 9 meq/L (5-15); Blood Urea Nitrogen 21 mg/dL (7-18); Calcium 8.3 mg/dL (8.5-10.1); Carbon Dioxide 24.5 meq/L (21.0-32.0); Chloride 101 meq/L (98-107); Creatine Kinase 168 U/L (26-192); Glomerular Filtration Rate Greater Than 89 mL/min (>89); Sodium 134 meq/L (136-145)
[2018-01-20] MEDS: Sod Chloride 0.9% Inj 1,000 ML IV.CONT SCH ×2 (02:39→20:39)
[2018-01-20 02:41] LABS: Glucose,Random 215 mg/dL (74-106); Potassium 4.5 meq/L (3.5-5.1)
[2018-01-20 02:52] LABS: Creatine Kinase MB 2.2 ng/mL (0.5-3.6)
[2018-01-20] MEDS ORDERED: Heparin - SQ 10,000 UNITS/ML Vial SQ ONE (03:19)
--- NOTE | 2018-01-20 08:42 | ED ---
HPI General Chief Complaint: Neuro Symptoms/Deficit Stated Complaint: Visual changes, headache Time Seen by Provider: 01/20/18 01:31 History of Present Illness HPI Narrative: 47-year-old female presents to the emergency department by private transportation for complaint of approximately 5 minutes of hemianopsia that has resolved and then developing headache 6/10 intensity and numbness to the left hand and face. Patient states the visual disturbance has resolved but still has headache and some numbness to the left hand and left face. Patient denies any weakness of the left upper extremity or left lower extremity. Patient said no change in mentation. Patient's had no change in speech. Patient has been treated for thalamic stroke September 2017 and subsequently identified to have an aneurysm which she had repaired 2 weeks ago at [facility] with clipping and stenting. Patient states that or worst ever. Patient has family history of aneurysm with mother dying at age 32 from cerebral bleed. Patient also has history of hypertension and diabetes. Review of medical records identifies patient was also being evaluated for clotting disorder. Patient has been followed by neurology locally as well as hematology locally. Related Data Home Medications Medication Instructions Recorded Confirmed aspirin 325 mg PO DAILY 01/20/18 01/20/18 atorvastatin 20 mg PO DAILY 01/20/18 01/20/18 lisinopril 10 mg PO DAILY 01/20/18 01/20/18 metformin 1,000 mg PO DAILY 01/20/18 01/20/18 ticagrelor [Brilinta] 90 mg PO BID 01/20/18 01/20/18 Allergies Allergy/AdvReac Type Severity Reaction Status Date / Time methocarbamol Allergy Mild Rash Verified 01/20/18 04:18 Iodinated Contrast- Oral and Allergy Rash Verified 01/20/18 04:18 IV Dye [Contrast] Review of Systems Except as stated in HPI: all other systems reviewed are negative PMFSH History History Provided By: Patient and Medical Record Medical History Medical History CVA, old, alterations of sensations (Acute) Diabetes 1.5, managed as type 2 (Acute) Fibroid uterus (Acute) Hyperlipidemia (Acute) Sleep apnea (Acute) Surgical History Surgical History Stented coronary artery (Acute) Social History Social History Substance History: No History of Abuse Second Hand Smoke Exposure: Yes ( smokes outside) Smoking Status: Former smoker Tobacco Type: Cigarettes How Often Do You Have a Drink Containing Alcohol: Never Recent Travel in [facility] within the Last 8 Weeks: No Recent Out of Country Travel within the Last 8 Weeks: No Immunization History Tetanus Immunization: Unsure Hx Influenza Vaccine This Season: No Exam Narrative Exam Narrative: GENERAL: Well-developed well-nourished female no acute distress no respiratory distress with no visual disturbance at this time; GCS 15 SKIN: Focused skin assessment warm/dry. HEAD: Atraumatic. Normocephalic. EYES: Pupils equal and round. No scleral icterus. No injection or drainage. ENT: No nasal bleeding or discharge. Mucous membranes pink and moist. NECK: Trachea midline. No JVD. CARDIOVASCULAR: Regular rate and rhythm. No murmur appreciated. RESPIRATORY: No accessory muscle use. Clear to auscultation. Breath sounds equal bilaterally. GASTROINTESTINAL: Abdomen soft, non-tender, nondistended. Hepatic and splenic margins not palpable. MUSCULOSKELETAL: No obvious deformities. No clubbing. No cyanosis. No edema. NEUROLOGICAL: Awake and alert. No obvious cranial nerve deficits. Motor grossly within normal limits. No limb ataxia. No pronator drift. Light touch sensory deficit to left hand motor strength 5/5. Normal speech. PSYCHIATRIC: Appropriate mood and affect; insight and judgment normal. Course Initial Documented Vital Signs Temperature 98 F 01/20/18 01:03 Pulse Rate 86 01/20/18 01:03 Respiratory Rate 20 01/20/18 01:03 Blood Pressure 231/98 H 01/20/18 01:03 Pulse Oximetry 98 01/20/18 01:03 Last Documented Vital Signs Temperature 98.1 F 01/20/18 08:00 Pulse Rate 76 01/20/18 08:00 Respiratory Rate 17 01/20/18 08:00 Blood Pressure 132/63 01/20/18 08:00 Pulse Oximetry 95 01/20/18 08:00 Critical Care Time Critical Care Time: Yes Total Critical Care Time: 35 Attestation: Aggregate critical care time was 35 minutes. Time to perform other separately billable procedures was not included in the critical care time. My time did not include minutes spent treating any other patients simultaneously or on activities that did not directly contribute to the patient's treatment. The services I provided to this patient were to treat and/or prevent clinically significant deterioration that could result in: Intracranial hemorrhage, respiratory failure, I provided critical care services requiring my management, as noted below: Chart data review, documentation time, medication orders and management, vital sign assessments/reviewing monitor data, ordering and reviewing lab tests, ordering and interpreting/reviewing x-rays and diagnostic studies, care of the patient and discussion of the patient with the admitting physicians. NIH Stroke Scale NIH Stroke Scale Level of Consciousness: 0-Alert Orientation Questions: 0-Answers both correct Responds to Commands: 0-Both tasks correct Gaze Eye Movement: 0-Horizontal movement WNL Visual Navarrete: 0-No visual field defect Facial Movement: 0-Normal Motor Functions Arm LEFT: 0-No drift Motor Functions Arm RIGHT: 0-No drift Motor Functions Leg LEFT: 0-No drift Motor Functions Leg RIGHT: 0-No drift Limb Ataxia: 0-No ataxia Sensory Loss: 1-Mild sensory loss Best Language: 0-Normal Articulation: 0-Normal Extinction or Inattention Sensory: 0-Absent Total: 1 Medical Decision Making MDM Narrative Medical decision making narrative: Patient with visual disturbance prior to arrival to the emergency department has resolved persistent headache and left hand numbness stroke alert called and symptoms began within the past hour and patient states has sensation of developing numbness to the left face. On physical exam NIH SS is confined to a score of 1. Patient is monitored in sinus rhythm. Patient's case discussed with on-call neurology Dr. Brower who recommends patient be managed per protocol with head of bed flat normal saline at 70 cc/h is aware patient has gone for CT brain noncontrast emergently also is aware the patient complains of possible allergic reaction to IV contrast IV contrast post administration approximately 24 hours after event not at time of administration of contrast. This is been discussed with radiologist with recommendation to premedicate at this time and proceed. CT brain noncontrast reveals no acute process evidence of coil and stent in place Patient has been given Solu-Medrol Benadryl and Pepcid as premedication for CTA Patient's case discussed with admitting physician Dr. Lopez to be placed on Dr. Salvador service is aware that CT is pending and that neurologist request patient to be treated with subcu heparin as well as continued on Brilinta which patient has been prescribed since stent placement and aspirin. Patient voices asymptomatic at this time no headache no paresthesias and visual has remained without change and has no difficulty and no visual disturbance at this time Differential Diagnosis Differential Diagnosis: CVA TIA ICA Medical Records Medical records reviewed: Yes I reviewed the patient's medical records. Lab Data Lab results reviewed: Yes I reviewed the patient's lab results. Result diagrams: 01/20/18 01:50 01/20/18 01:50 Lab Results 01/20/18 01/20/18 01/20/18 Range/Units 01:50 01:50 01:50 WBC 11.5 H (4.0-11.0) th/mm3 RBC 4.51 (4.00-5.30) mil/mm3 Hgb 14.2 (11.6-15.3) gm/dL POC Hgb (Calc) 13.3 (11.6-15.3) g/dL Hct 39.6 (35.0-46.0) % POC Hct 39.0 (35-46.0) % MCV 87.7 (80.0-100.0) fL MCH 31.5 (27.0-34.0) pg MCHC 35.9 (32.0-36.0) % RDW 13.0 (11.6-17.2) % Plt Count 301 (150-450) th/mm3 MPV 8.8 (7.0-11.0) fL Neut % (Auto) 64.9 (16.0-70.0) % Lymph % (Auto) 25.6 (9.0-44.0) % [place] % (Auto) 8.6 H (0.0-8.0) % Eos % (Auto) 0.5 (0.0-4.0) % Baso % (Auto) 0.4 (0.0-2.0) % Neut # (Auto) 7.5 (1.8-7.7) th/mm3 Lymph # (Auto) 2.9 (1.0-4.8) th/mm3 [place] # (Auto) 1.0 H (0.0-0.9) th/mm3 Eos # (Auto) 0.1 (0.0-0.4) th/mm3 Baso # (Auto) 0.0 (0.0-0.2) th/mm3 WBC Differential . Differential Comment Auto diff final PT 10.1 (9.8-11.6) sec INR 1.0 Ratio APTT 26.7 (24.3-30.1) sec Fibrinogen 341 (227-377) mg/dL POC Sodium 132 L (137-144) mmol/L Sodium 134 L (136-145) meq/L POC Potassium 4.5 (3.6-5.0) mmol/L Potassium 4.5 (3.5-5.1) meq/L POC Chloride 101 L (102-111) mmol/L Chloride 101 (98-107) meq/L Carbon Dioxide 24.5 (21.0-32.0) meq/L Anion Gap 9 (5-15) meq/L POC BUN 27 H (5-21) mg/dL BUN 21 H (7-18) mg/dL Creatinine 0.59 (0.50-1.00) mg/dL POC Creatinine 0.4 L (0.6-1.3) mg/dL Estimated GFR Greater than 89 (>89) mL/min POC Glucose 206 H (68-110) mg/dL Random Glucose 215 H (74-106) mg/dL Calcium 8.3 L (8.5-10.1) mg/dL Total Creatine Kinase 168 (26-192) U/L CK-MB (CK-2) 2.2 (0.5-3.6) ng/mL Troponin I Less than 0.02 L (0.02-0.05) ng/mL Blood Type Antibody Screen 01/20/18 01/20/18 Range/Units 04:29 05:40 WBC (4.0-11.0) th/mm3 RBC (4.00-5.30) mil/mm3 Hgb (11.6-15.3) gm/dL POC Hgb (Calc) (11.6-15.3) g/dL Hct (35.0-46.0) % POC Hct (35-46.0) % MCV (80.0-100.0) fL MCH (27.0-34.0) pg MCHC (32.0-36.0) % RDW (11.6-17.2) % Plt Count (150-450) th/mm3 MPV (7.0-11.0) fL Neut % (Auto) (16.0-70.0) % Lymph % (Auto) (9.0-44.0) % [place] % (Auto) (0.0-8.0) % Eos % (Auto) (0.0-4.0) % Baso % (Auto) (0.0-2.0) % Neut # (Auto) (1.8-7.7) th/mm3 Lymph # (Auto) (1.0-4.8) th/mm3 [place] # (Auto) (0.0-0.9) th/mm3 Eos # (Auto) (0.0-0.4) th/mm3 Baso # (Auto) (0.0-0.2) th/mm3 WBC Differential Differential Comment PT (9.8-11.6) sec INR Ratio APTT (24.3-30.1) sec Fibrinogen (227-377) mg/dL POC Sodium (137-144) mmol/L Sodium (136-145) meq/L POC Potassium (3.6-5.0) mmol/L Potassium (3.5-5.1) meq/L POC Chloride (102-111) mmol/L Chloride (98-107) meq/L Carbon Dioxide (21.0-32.0) meq/L Anion Gap (5-15) meq/L POC BUN (5-21) mg/dL BUN (7-18) mg/dL Creatinine (0.50-1.00) mg/dL POC Creatinine (0.6-1.3) mg/dL Estimated GFR (>89) mL/min POC Glucose 227 H (68-110) mg/dL Random Glucose (74-106) mg/dL Calcium (8.5-10.1) mg/dL Total Creatine Kinase (26-192) U/L CK-MB (CK-2) (0.5-3.6) ng/mL Troponin I (0.02-0.05) ng/mL Blood Type O Positive Antibody Screen Negative Imaging Data Radiologist's impression: Head CT 01/20/18 01:49 CONCLUSION: 1. Postsurgical features of distal right MCA stent and aneurysm coiling. 2. No acute intracranial abnormality. Report was called by Dr. Chung to Dr. Campbell at 0211] Chest X-Ray 01/20/18 01:55 CONCLUSION: 1. No acute cardiopulmonary disease. Discharge Plan Discharge Disposition Patient Disposition: 30 Still Patient Discharge Condition Condition: Stable Discharge Details Diagnosis: CVA (cerebrovascular accident) Physicians Team ED Provider: Ksenia Campbell Primary Care Provider: Maikel Sandhu Attending Provider: Rich Salvador Other Providers: Xiang Brower Discharge Interventions Interventions: ED Discharge Assessment Last Done: 01/20/18 04:28 Vital Signs Last Done: 01/20/18 04:05 Status ED Status: Left Department Discharge Information Discharge Date/Time: 01/20/18 04:00
[2018-01-20] MEDS ORDERED: MethylPREDNISolone Sod Succinate Inj 40 MG/ML Vial IV.PUSH ONE (09:21)
[2018-01-20 09:39] LABS: Bilirubin,Urine Negative (Negative); Clarity,Urine Clear (Clear); Color,Urine Yellow (Yellw/Straw); Glucose,Urine (UA) 500 or Greater mg/dL (Negative); Leukocyte Esterase,Urine Negative (Negative); Mucus,Urine Few /lpf (Occasional); Nitrite,Urine Negative (Negative); Specific Gravity,Urine 1.023 (1.002-1.035); Squamous Epithelial Cell,Urine 1 /hpf (0-5)
[2018-01-20] MEDS ORDERED: Dextrose 50% in Water 50 ML Vial IV.PUSH PRN (10:18)
--- NOTE | 2018-01-20 10:19 | MB ---
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 She was found to have, I believe, a 6 x 4 mm aneurysm, which was stented at the [facility] 2 weeks ago. She has been on Brilinta and 81 mg of aspirin since that time. When she was younger, about the age of 12-14, she had episodes about once a week of vision loss over to the left with some white spots and wavy vision and then some right hemisensory loss and then a bad headache. That happened again about 10 years ago. Since she had the stent placed, she has had mild headaches behind the left eye and then last evening, she had 5 minutes of left blurry vision over to the left and then she had some tingling in the left face and hand, which lasted about 10-15 minutes or so and then seemed to go away. She was called as a stroke alert, but her symptoms resolved. REVIEW OF SYSTEMS: She denied any chest pain or palpitations, DC, stent, angioplasty, AFib, Coumadin; renal, hepatic or pulmonary disease; thyroid disease, lupus, ulcer, cancer, or seizure. SOCIAL HISTORY: Not a smoker or drinker, lives with her . FAMILY HISTORY: Positive for cancer. Negative for seizure. Positive stroke in her mother, possibly from an aneurysm; at 32. MEDICATIONS AT HOME: 1. Brilinta 90 b.i.d. 2. Metformin. 3. Lisinopril. 4. Atorvastatin. 5. Aspirin 81 mg. PHYSICAL EXAMINATION: VITAL SIGNS: Sinus rhythm 231/98 initially, down to 132/63. NECK: There are no carotid, vertebral or ocular bruits. HEART: Regular rate and rhythm. I did not detect a murmur. NEUROLOGIC: Pupils are equal. Visual lara are full. Extraocular movements intact without nystagmus. Face is symmetric with normal sensation. Tongue was midline. There is no drift. Normal strength in upper and lower extremities bilaterally. DTRs are trace throughout. Toes are downgoing bilaterally. Pinprick is intact throughout, except in her toes bilaterally. She is not ataxic on [id number]. Specifically, pinprick on the left face and hand was normal and the vision in the left eye was normal in all 4 quadrants. LABORATORY DATA: CBC showed a white count 11.5, otherwise normal. UA is negative. Basic metabolic profile: Sodium 132, glucose 215. CPK and troponin negative. Coags were normal. Sedimentation rate was 11 in September. Lupus anticoagulant, PTT was high at 62, but confirmation was negative. Protein C and S were normal. Antithrombin III slightly low at 74. Factor V negative. LFTs normal. Cholesterol was normal. B12 is low at 259. TSH was normal. HCG was negative. Antinuclear antibody and antiphospholipid antibodies were negative. I reviewed a note from Dr. Betancourt. Factor V Leiden, prothrombin gene, lupus anticoagulant was all felt to be negative. Cardiolipin antibodies were negative. The only thing that was abnormal was antithrombin III. IMAGING STUDIES: CAT scan of the brain last evening showed a distal right MCA stent and an aneurysm coiling. She had a transesophageal echo back in September, which was normal. She had a regular echocardiogram, which was negative. She had a CT of the head showed a 4 x 6 mm right M1 aneurysm. She had a neck CTA that showed 35% plaque on the right internal carotid artery. She had an MRI of the brain, small left thalamic infarct. When I reviewed those films, it was a very tiny left thalamic infarct, extremely small and some minimal white matter changes bilaterally, a little bit more on the right. IMPRESSION AND RECOMMENDATIONS: Small left thalamic infarct in the past. History of what sounds like complicated migraines. History of low antithrombin III, now on Brilinta and 81 of aspirin. This new episode could be related to the stent placement and she tells me the stent evidently is MRI compatible. She is going to get her numbers and card and we will do an MRI of the brain, MRA [place] of [place] and neck. We will recheck her antithrombin III and at this point, with the stroke that she had prior and these new symptoms, I would recommend a loop recorder by Cardiology. We will check a methylmalonic acid on her and MTHF gene. Just increase her aspirin to 325 at this time. MD LOKESH Cole/ALLAN , 09:55 AM , 10:04 AM
--- NOTE | 2018-01-20 10:23 | P.HPIM ---
History of Present Illness Primary Care Physician: Maikel Sandhu DO Chief Complaint: Left facial tingling History of Present Illness: Mrs. Yeager is a 47 y/o female with HTN, diabetes, recent admission in 09/2017 with right facial numbness and was found to have had a left thalamic CVA and distal right MCA aneurysm for which she underwent recent stent and coiling at [facility] around 2 weeks ago. Pt has been following with Dr. Betancourt as an outpt for hypercoagulable workup. In review of his outpt notes, pt had mildly low antithrombin III but this was planned to be repeated in a few months. Pt has been taking ASA daily and Brillita was started after her coiling procedure. She reports having some intermittent headaches since the stent/coiling procedure. Pt presented to the ED at [facility] on 01/20/18 for complaints of approximately 5 minutes of left sided blurred vision that resolved and then developing left sided headache behind the eye and some tingling in the left face and hand, which lasted about 10-15 minutes or so and then resolved. This occurred at around 11:30 last night. Patient denies any weakness of the left upper extremity or left lower extremity. Patient's had no change in speech. Head CT in the ED was negative. Past Medical Hx Left thalamic CVA in 09/2017 Distal right MCA aneurysm s/p stent and coiling in 12/2017 HTN Hyperlipidemia Diabetes, Hgb A1C 7.5% on 01/01/18 GERD Anxiety Hx of tobacco use, quit in 09/2017 [place] 10/03/17- no JAMEY thrombus. No PFO. No vegetations. No cardioembolic source. 2D echo 10/03/17 - Normal LV size and wall thickness - Mild mitral valve regurgitation - Estimated EF 60-65% Past Surgical Hx Aneurysmal stent and coiling at [facility] in 12/2017 D&C Hysteroscopy Uterine myomectomy Family Hx Mother at 33 from acute CVA Father at age 36 with hx of lung cancer Social Hx Hx of tobacco use, quit in 09/2017 Denies any alcohol or illicit drug use - Diagnosis (1) Visual disturbance (2) CVA (cerebrovascular accident) (3) Hx of cerebral aneurysm repair (4) Diabetes (5) HTN (hypertension) (6) Hyperlipidemia (7) Left facial numbness Inpatient Certification: I certify that the inpatient services were ordered in accordance with Medicare regulations governing the order. This includes certification that hospital inpatient services are reasonable and necessary and in the case of services not specified as inpatient-only under 42 CFR 419.22(n), that they are appropriately provided as inpatient services in accordance to with the 2-midnight benchmark under 43 CFR 412.3(e) Review of Systems All other systems reviewed negative except as stated in HPI Constitutional: Denies chills, Denies fever(s) Eyes: Reports loss of vision Ears, Nose, Mouth, and Throat: Denies nasal congestion Cardiovascular: Denies chest pain, Denies rapid, pounding, or irregular heartbeat, Denies shortness of breath Respiratory: Denies cough, Denies shortness of breath Gastrointestinal: Denies abdominal pain, Denies constipation, Denies loose stools, Denies nausea, Denies vomiting Musculoskeletal: Reports tingling Skin/Breast: Denies rash Neurologic: Reports loss of vision, Reports memory loss, Reports tingling/ numbness/burning sensations PMFSH - History History Provided By: Patient, Medical Record - Medical History Medical History: Medical History (Last Reviewed 01/20/18 @ 08:47 by Ksenia Campbell MD) CVA, old, alterations of sensations Diabetes 1.5, managed as type 2 Fibroid uterus Hyperlipidemia Sleep apnea - Surgical History Surgical History: Surgical History (Last Reviewed 01/20/18 @ 08:47 by Ksenia Campbell MD) Stented coronary artery - Tobacco History Second Hand Smoke Exposure: Yes ( smokes outside) Tobacco Use In Past 30 Days: No Smoking Status: Former smoker Tobacco Type: Cigarettes - Alcohol History How Often Do You Have a Drink Containing Alcohol: Never - Substance Use History Substance History: No History of Abuse - Travel History Recent Travel in the [place] Within the Last 8 Weeks: No Recent Travel Out of the Country Within the Last 8 Weeks: No - Immunization History Tetanus Immunization: Unsure Hx Influenza Vaccine This Season: No Medications and Allergies Allergies Allergy/AdvReac Type Severity Reaction Status Date / Time methocarbamol Allergy Mild Rash Verified 01/20/18 04:18 Iodinated Contrast- Oral and Allergy Rash Verified 01/20/18 04:18 IV Dye [Contrast] Home Medications Medication Instructions Recorded Confirmed Type aspirin 325 mg PO DAILY 01/20/18 01/20/18 History atorvastatin 20 mg PO DAILY 01/20/18 01/20/18 History lisinopril 10 mg PO DAILY 01/20/18 01/20/18 History metformin 1,000 mg PO DAILY 01/20/18 01/20/18 History ticagrelor [Brilinta] 90 mg PO BID 01/20/18 01/20/18 History Active Medications: Active Medications Sodium Chloride (Ns Inj) 1,000 mls @ 70 mls/hr IV.CONT .[id number] MARINO Last Admin: 01/20/18 02:39 Dose: 70 mls/hr Sodium Chloride (Ns Inj) 1,000 mls @ 70 mls/hr IV.CONT .[id number] MARINO Stop: 01/20/18 16:17 Last Admin: 01/20/18 07:01 Dose: 70 mls/hr Sodium Chloride (Ns Flush) 2 ml IV.FLUSH PRN PRN PRN Reason: FLUSH AFTER USING IV ACCESS Exam Vital signs: Vital Signs 01/20/18 01:03 01/20/18 01:16 01/20/18 01:23 Temperature 98 F Pulse Rate 86 81 Respiratory Rate 20 16 Blood Pressure 231/98 H 133/79 133/79 Pulse Oximetry 98 98 01/20/18 01:53 01/20/18 04:05 01/20/18 04:41 Temperature 98.2 F Pulse Rate 89 73 Respiratory Rate 16 18 Blood Pressure 133/71 125/63 Pulse Oximetry 98 96 01/20/18 08:00 Temperature 98.1 F Pulse Rate 76 Respiratory Rate 17 Blood Pressure 132/63 Pulse Oximetry 95 Intake & Output 01/19/18 01/20/18 01/20/18 18:59 06:59 18:59 Intake Total 360 / 360 Balance 360 / 360 Weight 71.8 kg Intake: Oral 360 / 360 Other: # Voids 1 Date of Last Bowel Movement 01/19/18 # Bowel Movements 0 Weight On Admission 71.88 kg Narrative: GENERAL: NAD, AAOx3 SKIN: Warm and dry. HEENT: Atraumatic. Normocephalic. Pupils equal and round. No scleral icterus. No injection or drainage. No nasal bleeding or discharge. Mucous membranes pink and moist. NECK: Trachea midline. No JVD. CARDIO: Regular rate and rhythm. RESP: No accessory muscle use. Clear to auscultation. Breath sounds equal bilaterally. ABD: +BS, soft, non-tender, nondistended. EXT: Extremities without clubbing, cyanosis, or edema. No obvious deformities. NEURO: Awake and alert. No obvious cranial nerve deficits. Motor grossly within normal limits. Five out of 5 muscle strength in the arms and legs. Normal speech. PSYCHIATRIC: Appropriate mood and affect; insight and judgment normal. Results - Labs CBC & Chem 7: 01/20/18 01:50 01/20/18 01:50 Labs: Short CBC 01/20/18 Range/Units 01:50 WBC 11.5 H (4.0-11.0) th/mm3 Hgb 14.2 (11.6-15.3) gm/dL Hct 39.6 (35.0-46.0) % Plt Count 301 (150-450) th/mm3 BMP 01/20/18 01:50 Sodium 134 L Potassium 4.5 Chloride 101 Carbon Dioxide 24.5 BUN 21 H Creatinine 0.59 Calcium 8.3 L Cardiac Enzymes 01/20/18 Range/Units 01:50 Total Creatine Kinase 168 (26-192) U/L CK-MB (CK-2) 2.2 (0.5-3.6) ng/mL Troponin I Less than 0.02 L (0.02-0.05) ng/mL Urine 01/20/18 Range/Units 09:15 Urine Color Yellow (Yellw/Straw) Urine Clarity Clear (Clear) Urine pH 5.0 (5.0-8.5) Ur Specific [place] 1.023 (1.002-1.035) Urine Protein Negative (Neg-Trace) mg/dL Urine Glucose (UA) 500 or greater (Negative) mg/dL - Imaging Impressions Head CT 01/20/18 01:49 CONCLUSION: 1. Postsurgical features of distal right MCA stent and aneurysm coiling. 2. No acute intracranial abnormality. Report was called by Dr. Chung to Dr. Campbell at 0211] Chest X-Ray 01/20/18 01:55 CONCLUSION: 1. No acute cardiopulmonary disease. Head CTA 01/20/18 08:58 CONCLUSION: 1. Interval clipping of right MCA aneurysm otherwise not significantly changed. Caprini VTE Risk Assessment Caprini VTE Risk Assessment: Moderate/High Risk (score >= 2) Caprini Risk Assessment Model: Point Value = 1 Point Value = 2 Point Value = 3 Point Value = 5 Age 41-60 Minor surgery BMI > 25 kg/m2 Swollen legs Varicose veins or History of unexplained or recurrent spontaneous Oral contraceptives or hormone replacement Sepsis (< 1 month) Serious lung disease, including pneumonia (< 1 month) Abnormal pulmonary function Acute myocardial infarction Congestive heart failure (< 1 month) History of inflammatory bowel disease Medical patient at bed rest Age 61-74 Arthroscopic surgery Major open surgery (> 45 min) Laparoscopic surgery (> 45 min) Malignancy Confined to bed (> 72 hours) Immobilizing plaster cast Central venous access Age >= 75 History of VTE Family history of VTE Factor V Leiden Prothrombin [id number] Lupus anticoagulant Anticardiolipin antibodies Elevated serum homocysteine Heparin-induced thrombocytopenia Other congenital or acquired thrombophilia Stroke (< 1 month) Elective arthroplasty Hip, pelvis, or leg fracture Acute spinal cord injury (< 1 month) Prophylaxis Regimen: Total Risk Factor Score Risk Level Prophylaxis Regimen 0-1 Low Early ambulation 2 Moderate Order ONE of the following: *Sequential Compression Device (SCD) *Heparin 5000 units SQ BID 3-4 Higher Order ONE of the following medications: *Heparin 5000 units SQ TID *Enoxaparin/Lovenox 40 mg SQ daily (WT < 150 kg, CrCl > 30 mL/min) *Enoxaparin/Lovenox 30 mg SQ daily (WT < 150 kg, CrCl > 10-29 mL/min) *Enoxaparin/Lovenox 30 mg SQ BID (WT < 150 kg, CrCl > 30 mL/min) AND/OR *Sequential Compression Device (SCD) 5 or more Highest Order ONE of the following medications: *Heparin 5000 units SQ TID (Preferred with Epidurals) *Enoxaparin/Lovenox 40 mg SQ daily (WT < 150 kg, CrCl > 30 mL/min) *Enoxaparin/Lovenox 30 mg SQ daily (WT < 150 kg, CrCl > 10-29 mL/min) *Enoxaparin/Lovenox 30 mg SQ BID (WT < 150 kg, CrCl > 30 mL/min) AND *Sequential Compression Device (SCD) Assessment and Plan - Assessment (1) Visual disturbance Code(s): H53.9 - Unspecified visual disturbance Status: Acute Plan: Visual disturbance Left facial numbness Left hand numbness Hx of CVA in 09/2017 Hx of cerebral aneurysm - Pt is a 47 y/o female with HTN, diabetes, recent admission in 09/2017 with right facial numbness and was found to have had a left thalamic CVA and distal right MCA aneurysm for which she underwent recent stent and coiling at [facility] around 2 weeks ago. - Pt has been following with Dr. Betancourt as an outpt for hypercoagulable workup. In review of his outpt notes, pt had mildly low antithrombin III but this was planned to be repeated in a few months. - Pt has been taking ASA daily and Brillita was started after her coiling procedure. - Pt presented to the ED at [facility] on 01/20/18 for complaints of left sided blurred vision that resolved and then developing left sided headache behind the eye and some tingling in the left face and hand, which lasted about 10-15 minutes or so and then resolved. - Head CT in the ED was negative. - CTA (01/20/18) --> Interval clipping of right MCA aneurysm otherwise not significantly changed. - Neurology is consulted - MRI/MRA is ordered as her coil/stent is reportedly MRI compatible - Previous 2D echo reviewed - Pt is on telemetry - Cont. Brilinta and ASA 325mg daily - IVF - Await MRI/MRA results before resuming BP meds - Cont. statin - Monitor labs and vitals closely - Supportive care HTN - Hold home meds for now - Monitor Hyperlipidemia - Cont. home meds Diabetes mellitus - Hold Metformin - NovoLog SSI - Accu check The exam, history, and the medical decision-making described in the above note were completed with the assistance of the mid-level provider. I reviewed and agree with the findings presented. I attest that I had a [id number] encounter with the patient on the same day, and personally performed and documented my assessment and findings in the medical record. (2) CVA (cerebrovascular accident) Code(s): I63.9 - Cerebral infarction, unspecified Status: Acute (3) Hx of cerebral aneurysm repair Code(s): Z98.890 - Other specified postprocedural states; Z86.79 - Personal history of other diseases of the circulatory system Status: Acute (4) Diabetes Code(s): E11.9 - Type 2 diabetes mellitus without complications Status: Acute (5) HTN (hypertension) Code(s): I10 - Essential (primary) hypertension Status: Acute (6) Hyperlipidemia Code(s): E78.5 - Hyperlipidemia, unspecified Status: Acute (7) Left facial numbness Code(s): R20.0 - Anesthesia of skin Status: Acute H&P: Quality - VTE Deep Vein Thrombosis/Pulmonary Embolism Present on Admission: No
--- NOTE | 2018-01-20 11:44 | CT ---
EXAM DATE: 01/20/2018 11:36 AM EDT AGE/SEX: 47 years / Female INDICATIONS: Post operative aneurysm coiling. CLINICAL DATA: This is the patient's initial encounter. Patient reports that signs and symptoms have been present for 1 day and indicates a pain score of 0/10. MEDICAL/SURGICAL HISTORY: Stroke. Diabetes. Coronary artery stent. aneurysm coil RADIATION DOSE: 9.15 CTDI (mGy) COMPARISON: [facility] [place], CTA BRAIN W 3D RECON, 10/03/2017. . TECHNIQUE: Volumetric scanning was performed using a multi-row detector CT scanner during bolus infu tracie of 90 ml Omnipaque 350 (iohexol) nonionic water-soluble contrast as a single exam dose. The d more was post processed with a variety of visualization algorithms including full volume maximum inten sity projection, multi-planar sliding thin slab reformation, curved planar reformation, and surface r endering techniques. Using automated exposure control and adjustment of the mA and/or kV according t o patient size, radiation dose was kept as low as reasonably achievable to obtain optimal diagnostic quality images. DICOM format image data is available electronically for review and comparison. FINDINGS: The previously seen right MCA aneurysm has been clipped in the interim. Flow is identified within dis mayra MCA branches without any significant spasm. The rest of the examination has not changed. CONCLUSION: 1. Interval clipping of right MCA aneurysm otherwise not significantly changed. Electronically signed by: Mo Solorio MD 01/20/2018 11:43 AM EDT
[2018-01-20 13:18] LABS: Vitamin B12 429 pg/mL (193-986)
[2018-01-20] MEDS ORDERED: Gadobutrol PF 10 MMOL/10 ML Vial (for RAD) IV.SIG ONE (13:18)
--- NOTE | 2018-01-20 14:03 | MR ---
EXAM DATE: 01/20/2018 1:50 PM EDT AGE/SEX: 47 years / Female INDICATIONS: . CVA. CLINICAL DATA: This is the patient's initial encounter. Patient reports that signs and symptoms have been present for 1 day and indicates a pain score of 0/10. MEDICAL/SURGICAL HISTORY: Hypercholesterolemia. Aneurysm, intracranial. Diabetes mellitus typ e II. . Aneurysm coil. COMPARISON: [facility] [place], CTA CAROTID ARTERIES W 3D RECON, 10/03/2017. C, CTA NECK W CONTRAST W 3D, 12/24. . TECHNIQUE: 10 ml Gadavist (gadobutrol) contrast infused MRA (single exam dose) of the extracranial circulation was performed using a neurovascular coil. Postprocessing was performed, including rotati ng sub-volume maximum intensity projections of each carotid artery, rotating full-volume maximum inte nsity projections of both carotid arteries, sagittal and coronal sliding thin-slab reformations of ea ch carotid artery, and left oblique sliding thin-slab reformation through the aortic arch to include the origin of the arch branch vessels. FINDINGS: Aortic Arch : There is a three-vessel origin of the great vessels from the aorta. No evidence of o stial narrowing. Right Carotid : The common carotid artery is intact. The carotid bulb has a normal configuration wi thout ulceration or narrowing. The internal carotid artery lumen is smooth without stenosis. The ex ternal carotid artery is intact. Left Carotid : The common carotid artery is intact. The carotid bulb has a normal configuration wit hout ulceration or narrowing. The internal carotid artery lumen is smooth without stenosis. The ext ernal carotid artery is intact. Vertebrals : The vertebral arteries have a symmetric diameter. No stenotic lesions are seen. CONCLUSION: 1. Negative MRA Carotids. Percent stenosis is calculated using the diameter of the stenotic region over the diameter of the nor mal distal internal carotid artery Electronically signed by: Mo Solorio MD 01/20/2018 2:01 PM EDT
--- NOTE | 2018-01-20 14:09 | MR ---
EXAM DATE: 01/20/2018 1:52 PM EDT AGE/SEX: 47 years / Female INDICATIONS: CVA. CLINICAL DATA: This is the patient's initial encounter. Patient reports that signs and symptoms have been present for 1 day and indicates a pain score of 0/10. MEDICAL/SURGICAL HISTORY: Aneurysm, intracranial. Diabetes mellitus type II. Hypercholesterol emia. . Aneurysm coil COMPARISON: [facility], MRI BRAIN W/O CONTRAST, 10/02/2017. . TECHNIQUE: Multiplanar, multisequence examination of the brain was performed without and with 10 ml G adavist (gadobutrol) contrast as a single exam dose. FINDINGS: There is no evidence for intracranial hemorrhage, mass effect, mass lesions, edema, or extra-axial fl uid collections. There are no signs of acute infarction for technique. The diffusion portion is unr emarkable. Slight periventricular white matter changes are seen nonspecific mostly consistent with c hronic small vessel ischemic changes. The appearance however is nonspecific in regards to the managi ng processes. Previously seen punctate area of lacunar infarction in the thalamus on the left side is no longer seen. The patient has undergone right MCA aneurysm clipping which is MRI safe. CONCLUSION: Chronic small vessel ischemic and atrophic changes to a minimal degree and the previousl y seen tiny lacunar infarction in the left thalamus is no longer seen. Electronically signed by: Mo Solorio MD 01/20/2018 2:07 PM EDT
--- NOTE | 2018-01-20 14:10 | MR ---
EXAM DATE: 01/20/2018 1:50 PM EDT AGE/SEX: 47 years / Female INDICATIONS: CVA. CLINICAL DATA: This is the patient's initial encounter. Patient reports that signs and symptoms have been present for 1 day and indicates a pain score of 0/10. MEDICAL/SURGICAL HISTORY: Diabetes mellitus type II. Aneurysm, intracranial. Hypercholesterol emia. . Aneurysm coil. COMPARISON: No prior exams available for comparison. TECHNIQUE: 3D [id number] MRA was performed. Source images, multiplanar STS MIP, and 3D volum e MIP reconstructions were reviewed. FINDINGS: The patient is status post aneurysm clipping of right MCA aneurysm and there is artifact at this site. There is excellent flow distal to it without any evidence for spasm. The rest of the exam ination is unremarkable. CONCLUSION: 1. Patient is status post right MCA aneurysm clipping which is MRI safe without any signs of spasm. Electronically signed by: Mo Solorio MD 01/20/2018 2:09 PM EDT
--- NOTE | 2018-01-20 14:22 | CT ---
EXAM DATE: 01/20/2018 12:59 PM EDT AGE/SEX: 47 years / Female INDICATIONS: Post operative aneurysm coiling. CLINICAL DATA: This is the patient's initial encounter. Patient reports that signs and symptoms have been present for 1 day and indicates a pain score of 0/10. MEDICAL/SURGICAL HISTORY: Stroke. Diabetes. Coronary artery stent. Aneurysm clip RADIATION DOSE: 9.15 CTDI (mGy) COMPARISON: [facility] [place], CTA CAROTID ARTERIES W 3D RECON, 10/03/2017. C, MRA NECK W CONTRAST, 8. . TECHNIQUE: Volumetric scanning was performed using a multirow detector CT scanner during bolus infus ion of 90ML ml Omnipaque 350 (iohexol) nonionic water-soluble contrast as a cumulative dose for mult iple exams. The data was postprocessed with a variety of visualization algorithms including full-vo lume maximum intensity projection, multiplanar sliding thin-slab reformation, curved-planar reformati on, and surface-rendering techniques. Using automated exposure control and adjustment of the mA and/ or kV according to patient size, radiation dose was kept as low as reasonably achievable to obtain op timal diagnostic quality images. DICOM format image data is available electronically for review and comparison. Percent stenosis is calculated using the diameter of the stenotic region over the diameter of the nor mal distal internal carotid artery. FINDINGS: The takeoff of the major vessels are intact from the arch. There is minimal extensive plaque appears to be soft plaque at the origin of the left internal carotid artery without any significant stenosis. The right internal carotid artery appears intact. The vertebral arteries are intact. CONCLUSION: Minimal extrinsic soft tissue plaque at the origin of the left internal carotid artery wi thout any stenosis. Electronically signed by: Mo Solorio MD 01/20/2018 2:21 PM EDT
--- NOTE | 2018-01-20 14:39 | ECG ---
Date Performed: 01/20/2018 Time Performed: 03:09:29 PTAGE: 47 years EKG: Sinus rhythm POSSIBLE RIGHT VENTRICULAR CONDUCTION DELAY NONSPECIFIC T-WAVE ABNORMALITY BORDERLINE ECG Since PREVIOUS TRACING , no significant change noted PREVIOUS TRACIN10/02/2017 09.21 DOCTOR: Junior Shaw Interpretating Date/Time 01/20/2018 14:38:26
[2018-01-20] MEDS: Aspirin 325 MG Tablet PO SCH (15:42)
[2018-01-20] MEDS: Insulin NovoLOG Aspart Correctional Sugar Inj SQ SCH ×3 (18:22→20:40)
[2018-01-21] MEDS: Aspirin 325 MG Tablet PO SCH ×2 (07:46→09:22)
[2018-01-21] MEDS: Insulin NovoLOG Aspart Correctional Sugar Inj SQ SCH ×2 (07:49→12:08)
[2018-01-21] MEDS: Sod Chloride 0.9% Inj 1,000 ML IV.CONT SCH ×2 (07:53→12:09)
[2018-01-21 08:16] LABS: Baso % (Auto) 0.2 % (0.0-2.0); Hematocrit 39.3 % (35.0-46.0); Hemoglobin 13.5 gm/dL (11.6-15.3); Lymph # (Auto) 2.5 th/mm3 (1.0-4.8); Lymph % (Auto) 18.7 % (9.0-44.0); Mean Corpuscular HGB Conc 34.3 % (32.0-36.0); Mean Corpuscular Hemoglobin 30.5 pg (27.0-34.0); Mean Corpuscular Volume 88.9 fL (80.0-100.0); Mean Platelet Volume 8.9 fL (7.0-11.0); Mono % (Auto) 7.4 % (0.0-8.0); Neut # (Auto) 9.7 th/mm3 (1.8-7.7); Neut % (Auto) 73.7 % (16.0-70.0); Platelet Count 265 th/mm3 (150-450); Red Blood Count 4.42 mil/mm3 (4.00-5.30); Red Cell Distribution Width 13.2 % (11.6-17.2); White Blood Count 13.2 th/mm3 (4.0-11.0)
--- NOTE | 2018-01-21 08:38 | P.PNNEU ---
Subjective Subjective Comments: No acute events reported sr Active Medications: Active Medications Aspirin (Aspirin) 325 mg PO DAILY [facility] Last Admin: 01/21/18 07:46 Dose: 325 mg Atorvastatin Calcium (Lipitor) 20 mg PO DAILY [facility] Last Admin: 01/21/18 07:51 Dose: 20 mg Dextrose (D50w Vial) 50 ml IV.PUSH UNSCH PRN PRN Reason: PER HYPOGLYCEMIA PROTOCOL Glucagon (Glucagon Inj) 1 mg OTHER PRN PRN PRN Reason: for Hypoglycemia Protocol Sodium Chloride (Ns Inj) 1,000 mls @ 70 mls/hr IV.CONT .[id number] [facility] Last Admin: 01/21/18 07:53 Dose: Not Given Insulin Aspart (Novolog Insulin Correctional Sugar Inj) 0 unit SQ ACHS [facility]; Protocol Last Admin: 01/21/18 07:49 Dose: 2 unit Sodium Chloride (Ns Flush) 2 ml IV.FLUSH PRN PRN PRN Reason: FLUSH AFTER USING IV ACCESS Ticagrelor (Brilinta) 90 mg PO BID [facility] Last Admin: 01/21/18 07:47 Dose: 90 mg Allergies/Adverse Reactions: Allergies Allergy/AdvReac Type Severity Reaction Status Date / Time methocarbamol Allergy Mild Rash Verified 01/20/18 04:18 Iodinated Contrast- Oral and Allergy Rash Verified 01/20/18 04:18 IV Dye [Contrast] Physical Exam Vital signs: Vital Signs 01/20/18 09:00 01/20/18 12:00 01/20/18 16:00 Temperature 97.2 F L 97.5 F L Pulse Rate 76 72 68 Respiratory Rate 16 18 Blood Pressure 156/72 H 126/69 Pulse Oximetry 95 95 01/20/18 19:53 01/20/18 20:00 01/20/18 23:27 Temperature 97.8 F Pulse Rate 71 70 Respiratory Rate 21 18 Blood Pressure 135/69 Pulse Oximetry 96 01/21/18 00:00 01/21/18 00:41 01/21/18 04:00 Temperature 98.0 F 97.6 F Pulse Rate 65 65 66 Respiratory Rate 18 18 Blood Pressure 103/54 L 115/57 L Pulse Oximetry 95 95 01/21/18 05:37 Temperature Pulse Rate Respiratory Rate 18 Blood Pressure Pulse Oximetry Intake & Output 01/20/18 01/21/18 01/21/18 18:59 06:59 18:59 Intake Total 600 / 600 1999 Balance 600 / 600 1999 Intake: IV 1999 NS Inj 1,000 ML @ 70 mls/hr IV. 1000 / 1000 CONT .[id number] [facility] Rx#:[id number] Oral 600 / 600 Other: # Voids 8 Date of Last Bowel Movement 01/19/18 01/19/18 01/19/18 Narrative: vff face sym nl speech 10/27 Objective Laboratory Results - last 24 hr 01/20/18 01/20/18 01/20/18 09:15 11:15 18:15 WBC RBC Hgb Hct MCV MCH MCHC RDW Plt Count MPV Neut % (Auto) Lymph % (Auto) [place] % (Auto) Eos % (Auto) Baso % (Auto) Neut # (Auto) Lymph # (Auto) [place] # (Auto) Eos # (Auto) Baso # (Auto) WBC Differential Differential Comment POC Glucose 305 H Vitamin B12 429 Beta HCG, Quant Less than 1 Urine Color Yellow Urine Clarity Clear Urine pH 5.0 Ur Specific Spring 1.023 Urine Protein Negative Urine Glucose (UA) 500 or greater Urine Ketones 20 Urine Occult Blood Small H Urine Nitrate Negative Urine Bilirubin Negative Urine Urobilinogen Less than 2 Ur Leukocyte Esterase Negative Urine RBC 1 Urine WBC Less than 1 Ur Squamous Epith Cells 1 Urine Mucus Few H Micro UA Comment Culture not ind Urine Culture Comments Culture not ind 01/20/18 01/21/18 01/21/18 19:36 07:19 07:45 WBC 13.2 H RBC 4.42 Hgb 13.5 Hct 39.3 MCV 88.9 MCH 30.5 MCHC 34.3 RDW 13.2 Plt Count 265 MPV 8.9 Neut % (Auto) 73.7 H Lymph % (Auto) 18.7 [place] % (Auto) 7.4 Eos % (Auto) 0.0 Baso % (Auto) 0.2 Neut # (Auto) 9.7 H Lymph # (Auto) 2.5 [place] # (Auto) 1.0 H Eos # (Auto) 0.0 Baso # (Auto) 0.0 WBC Differential . Differential Comment Auto diff final POC Glucose 264 H 163 H Vitamin B12 Beta HCG, Quant Urine Color Urine Clarity Urine pH Ur Specific Spring Urine Protein Urine Glucose (UA) Urine Ketones Urine Occult Blood Urine Nitrate Urine Bilirubin Urine Urobilinogen Ur Leukocyte Esterase Urine RBC Urine WBC Ur Squamous Epith Cells Urine Mucus Micro UA Comment Urine Culture Comments Review/Management - Review/Management Plan: imp mri neg acute cva small subacute/older cva r pariental wm not seen prior mri september around stent time b12 ok on statin brilinta and 325 asa mthf gene pend antithormbin 3 pend i would like to get loop placed then dc the aneurism was incidental good filling on mra beyond stent
[2018-01-21 08:43] LABS: Anion Gap 8 meq/L (5-15); Blood Urea Nitrogen 16 mg/dL (7-18); Calcium 8.7 mg/dL (8.5-10.1); Carbon Dioxide 25.1 meq/L (21.0-32.0); Chloride 106 meq/L (98-107); Glomerular Filtration Rate Greater Than 89 mL/min (>89); Glucose,Random 169 mg/dL (74-106); Potassium 4.1 meq/L (3.5-5.1); Sodium 139 meq/L (136-145)
--- NOTE | 2018-01-21 09:25 | P.CONCA ---
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, managed as type 2 Fibroid uterus Hyperlipidemia Sleep apnea - Surgical History Surgical History: Surgical History (Last Reviewed 01/20/18 @ 08:47 by Ksenia Campbell MD) Stented coronary artery Medications and Allergies Allergies Allergy/AdvReac Type Severity Reaction Status Date / Time methocarbamol Allergy Mild Rash Verified 01/20/18 04:18 Iodinated Contrast- Oral and Allergy Rash Verified 01/20/18 04:18 IV Dye [Contrast] Home Medications Medication Instructions Recorded Confirmed Type aspirin 325 mg PO DAILY 01/20/18 01/20/18 History atorvastatin 20 mg PO DAILY 01/20/18 01/20/18 History lisinopril 10 mg PO DAILY 01/20/18 01/20/18 History metformin 1,000 mg PO DAILY 01/20/18 01/20/18 History ticagrelor [Brilinta] 90 mg PO BID 01/20/18 01/20/18 History Active Medications: Active Medications Aspirin (Aspirin) 325 mg PO DAILY [facility] Last Admin: 01/21/18 09:22 Dose: Not Given Atorvastatin Calcium (Lipitor) 20 mg PO DAILY [facility] Last Admin: 01/21/18 09:23 Dose: Not Given Dextrose (D50w Vial) 50 ml IV.PUSH UNSCH PRN PRN Reason: PER HYPOGLYCEMIA PROTOCOL Glucagon (Glucagon Inj) 1 mg OTHER PRN PRN PRN Reason: for Hypoglycemia Protocol Sodium Chloride (Ns Inj) 1,000 mls @ 70 mls/hr IV.CONT .[id number] [facility] Last Admin: 01/21/18 12:09 Dose: 70 mls/hr Insulin Aspart (Novolog Insulin Correctional Sugar Inj) 0 unit SQ ACHS [facility]; Protocol Last Admin: 01/21/18 12:08 Dose: 2 unit Sodium Chloride (Ns Flush) 2 ml IV.FLUSH PRN PRN PRN Reason: FLUSH AFTER USING IV ACCESS Ticagrelor (Brilinta) 90 mg PO BID [facility] Last Admin: 01/21/18 09:23 Dose: Not Given Exam Vital signs: Vital Signs 01/20/18 16:00 01/20/18 19:53 01/20/18 20:00 Temperature 97.5 F L 97.8 F Pulse Rate 68 71 70 Respiratory Rate 18 21 Blood Pressure 126/69 135/69 Pulse Oximetry 95 96 01/20/18 23:27 01/21/18 00:00 01/21/18 00:41 Temperature 98.0 F Pulse Rate 65 65 Respiratory Rate 18 18 Blood Pressure 103/54 L Pulse Oximetry 95 01/21/18 04:00 01/21/18 05:37 01/21/18 08:00 Temperature 97.6 F 98.2 F Pulse Rate 66 74 Respiratory Rate 18 18 Blood Pressure 115/57 L 124/68 Pulse Oximetry 95 98 Intake & Output 01/20/18 01/21/18 01/21/18 18:59 06:59 18:59 Intake Total 600 / 600 1999 / 1999 Balance 600 / 600 1999 Intake: IV 1999 NS Inj 1,000 ML @ 70 mls/hr IV. 1000 / 1000 CONT .[id number] [facility] Rx#:[id number] Oral 600 / 600 Other: # Voids 8 Date of Last Bowel Movement 01/19/18 01/19/18 01/19/18 Results 01/21/18 07:19 01/21/18 07:19 CBC 01/21/18 Range/Units 07:19 WBC 13.2 H (4.0-11.0) th/mm3 RBC 4.42 (4.00-5.30) mil/mm3 Hgb 13.5 (11.6-15.3) gm/dL Hct 39.3 (35.0-46.0) % Plt Count 265 (150-450) th/mm3 Neut # (Auto) 9.7 H (1.8-7.7) th/mm3 Lymph # (Auto) 2.5 (1.0-4.8) th/mm3 [place] # (Auto) 1.0 H (0.0-0.9) th/mm3 Eos # (Auto) 0.0 (0.0-0.4) th/mm3 Baso # (Auto) 0.0 (0.0-0.2) th/mm3 Comprehensive Metabolic Panel 01/21/18 Range/Units 07:19 Sodium 139 (136-145) meq/L Potassium 4.1 (3.5-5.1) meq/L Chloride 106 (98-107) meq/L Carbon Dioxide 25.1 (21.0-32.0) meq/L BUN 16 (7-18) mg/dL Creatinine 0.59 (0.50-1.00) mg/dL Calcium 8.7 (8.5-10.1) mg/dL Intake and Output 01/20/18 01/21/18 01/21/18 22:59 06:59 14:59 Intake Total 600 / 600 1999 Balance 600 / 600 1999 Intake: IV 1999 NS Inj 1,000 ML @ 70 mls/hr IV. 1000 / 1000 CONT .[id number] [facility] Rx#:[id number] Oral 600 / 600 Other: # Voids 8 Date of Last Bowel Movement 01/19/18 01/19/18 Assessment and Plan - Attending Attestation recurrent stroke on aspirin brillinta outpatient 21 day event monitor if + afib, then convert to anticoagulant <Ignacio Gilmore - Last Filed: 01/21/18 15:18> History of Present Illness Primary Care Provider: Maikel Sandhu DO Family Provider: Maikel Sandhu DO Chief Complaint: Left facial tingling History of Present Illness: 47-year-old female with a past medical history of CVA, diabetes, HLD, cerebral aneurysm coiling who presented with TIA. The patient had a CVA in September of this year and underwent CHARLOTTE that was unremarkable with no PFO. Since that time she is underwent cerebral aneurysm coiling at [place] and has been on aspirin and Brilinta. Previous CVA had right facial and right arm numbness. The patient presented with left facial and left arm numbness. EKG and telemetry with NSR. Brain imaging with no new stroke. Neurology consulted and requesting evaluation for long-term heart rhythm monitoring. 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, managed as type 2 Fibroid uterus Hyperlipidemia Sleep apnea - Surgical History Surgical History: Surgical History (Last Reviewed 01/20/18 @ 08:47 by Ksenia Campbell MD) Stented coronary artery - Tobacco History Second Hand Smoke Exposure: Yes ( smokes outside) Tobacco Use In Past 30 Days: No Smoking Status: Former smoker Tobacco Type: Cigarettes - Alcohol History How Often Do You Have a Drink Containing Alcohol: Never - Substance Use History Substance History: No History of Abuse - Travel History Recent Travel in the [place] Within the Last 8 Weeks: No Recent Travel Out of the Country Within the Last 8 Weeks: No - Immunization History Tetanus Immunization: Unsure Hx Influenza Vaccine This Season: No Medications and Allergies Active Medications: Active Medications Aspirin (Aspirin) 325 mg PO DAILY [facility] Last Admin: 01/21/18 07:46 Dose: 325 mg Atorvastatin Calcium (Lipitor) 20 mg PO DAILY [facility] Last Admin: 01/21/18 07:51 Dose: 20 mg Dextrose (D50w Vial) 50 ml IV.PUSH UNSCH PRN PRN Reason: PER HYPOGLYCEMIA PROTOCOL Glucagon (Glucagon Inj) 1 mg OTHER PRN PRN PRN Reason: for Hypoglycemia Protocol Sodium Chloride (Ns Inj) 1,000 mls @ 70 mls/hr IV.CONT .[id number] [facility] Last Admin: 01/21/18 07:53 Dose: Not Given Insulin Aspart (Novolog Insulin Correctional Sugar Inj) 0 unit SQ ACHS [facility]; Protocol Last Admin: 01/21/18 07:49 Dose: 2 unit Sodium Chloride (Ns Flush) 2 ml IV.FLUSH PRN PRN PRN Reason: FLUSH AFTER USING IV ACCESS Ticagrelor (Brilinta) 90 mg PO BID [facility] Last Admin: 01/21/18 07:47 Dose: 90 mg Exam Vital signs: Vital Signs 01/20/18 12:00 01/20/18 16:00 01/20/18 19:53 Temperature 97.2 F L 97.5 F L Pulse Rate 72 68 71 Respiratory Rate 16 18 Blood Pressure 156/72 H 126/69 Pulse Oximetry 95 95 01/20/18 20:00 01/20/18 23:27 01/21/18 00:00 Temperature 97.8 F 98.0 F Pulse Rate 70 65 Respiratory Rate 21 18 18 Blood Pressure 135/69 103/54 L Pulse Oximetry 96 95 01/21/18 00:41 01/21/18 04:00 01/21/18 05:37 Temperature 97.6 F Pulse Rate 65 66 Respiratory Rate 18 18 Blood Pressure 115/57 L Pulse Oximetry 95 Intake & Output 01/20/18 01/21/18 01/21/18 18:59 06:59 18:59 Intake Total 600 / 600 1999 Balance 600 / 600 1999 Intake: IV 1999 NS Inj 1,000 ML @ 70 mls/hr IV. 1000 / 1000 CONT .[id number] [facility] Rx#:[id number] Oral 600 / 600 Other: # Voids 8 Date of Last Bowel Movement 01/19/18 01/19/18 01/19/18 Narrative: GENERAL: Well-developed well-nourished. In no acute distress. NECK: No carotid bruits. No JVD. CARDIOVASCULAR: Regular rate and rhythm. No murmur appreciated. RESPIRATORY: No accessory muscle use. Clear to auscultation. Breath sounds equal bilaterally. MUSCULOSKELETAL: No clubbing or cyanosis. No edema. NEUROLOGICAL: Awake and alert. Normal speech. Results 01/21/18 07:19 01/21/18 07:19 CBC 01/21/18 Range/Units 07:19 WBC 13.2 H (4.0-11.0) th/mm3 RBC 4.42 (4.00-5.30) mil/mm3 Hgb 13.5 (11.6-15.3) gm/dL Hct 39.3 (35.0-46.0) % Plt Count 265 (150-450) th/mm3 Neut # (Auto) 9.7 H (1.8-7.7) th/mm3 Lymph # (Auto) 2.5 (1.0-4.8) th/mm3 [place] # (Auto) 1.0 H (0.0-0.9) th/mm3 Eos # (Auto) 0.0 (0.0-0.4) th/mm3 Baso # (Auto) 0.0 (0.0-0.2) th/mm3 Comprehensive Metabolic Panel 01/21/18 Range/Units 07:19 Sodium 139 (136-145) meq/L Potassium 4.1 (3.5-5.1) meq/L Chloride 106 (98-107) meq/L Carbon Dioxide 25.1 (21.0-32.0) meq/L BUN 16 (7-18) mg/dL Creatinine 0.59 (0.50-1.00) mg/dL Calcium 8.7 (8.5-10.1) mg/dL Intake and Output 01/20/18 01/21/18 01/21/18 22:59 06:59 14:59 Intake Total 600 / 600 1999 Balance 600 / 600 1999 Intake: IV 1999 NS Inj 1,000 ML @ 70 mls/hr IV. 1000 / 1000 CONT .[id number] [facility] Rx#:[id number] Oral 600 / 600 Other: # Voids 8 Date of Last Bowel Movement 01/19/18 01/19/18 Assessment and Plan - Plan 47-year-old female with a past medical history of CVA, diabetes, HLD, cerebral aneurysm coiling who presented with TIA. The patient had a CVA in September of this year and underwent CHARLOTTE that was unremarkable with no PFO. Since that time she is underwent cerebral aneurysm coiling at [place] and has been on aspirin and Brilinta. Previous CVA had right facial and right arm numbness. The patient presented with left facial and left arm numbness. EKG and telemetry with NSR. Brain imaging with no new stroke. Neurology consulted and requesting evaluation for long-term heart rhythm monitoring. TIA, recurrent: Consider long-term heart rhythm monitoring to rule out occult atrial fibrillation, loop recorder implantation vs outpatient 30 day event monitor and follow up.
--- NOTE | 2018-01-21 11:56 | P.PNIM ---
Subjective Interval history: Pt feeling better from admission. Pt denies facial numbness or blurred vision. Pt denies any focal weakness. Pt denies speech difficulties or problems swallowing. Pt denies gait difficulties. Physical Exam Vital signs: 01/21/18 00:41 01/21/18 04:00 01/21/18 05:37 Temperature 97.6 F Pulse Rate 65 66 Respiratory Rate 18 18 Blood Pressure 115/57 L Pulse Oximetry 95 Narrative: vff face sym nl speech 10/27 Results - Labs CBC & Chem 7: 01/21/18 07:19 01/21/18 07:19 - Imaging Head MRI 01/20/18 00:00 CONCLUSION: Chronic small vessel ischemic and atrophic changes to a minimal degree and the previously seen tiny lacunar infarction in the left thalamus is no longer seen. Head MRA 01/20/18 00:00 CONCLUSION: 1. Patient is status post right MCA aneurysm clipping which is MRI safe without any signs of spasm. Neck MRA 01/20/18 00:00 CONCLUSION: 1. Negative MRA Carotids. Percent stenosis is calculated using the diameter of the stenotic region over the diameter of the normal distal internal carotid artery Head CT 01/20/18 01:49 CONCLUSION: 1. Postsurgical features of distal right MCA stent and aneurysm coiling. 2. No acute intracranial abnormality. Chest X-Ray 01/20/18 01:55 CONCLUSION: 1. No acute cardiopulmonary disease. Head CTA 01/20/18 08:58 CONCLUSION: 1. Interval clipping of right MCA aneurysm otherwise not significantly changed. Neck CTA 01/20/18 08:58 CONCLUSION: Minimal extrinsic soft tissue plaque at the origin of the left internal carotid artery without any stenosis. Assessment and Plan - Assessment (1) Visual disturbance Code(s): H53.9 - Unspecified visual disturbance Status: Acute Plan: Visual disturbance Left facial numbness Left hand numbness Hx of CVA in 09/2017 Hx of cerebral aneurysm - Pt is a 47 y/o female with HTN, diabetes, recent admission in 09/2017 with right facial numbness and was found to have had a left thalamic CVA and distal right MCA aneurysm for which she underwent recent stent and coiling at [facility] around 2 weeks ago. - Pt has been following with Dr. Betancourt as an outpt for hypercoagulable workup. - In review of his outpt notes, pt had mildly low antithrombin III but this was planned to be repeated in a few months. - Pt has been taking ASA daily and Brillita was started after her coiling procedure. - Pt presented to the ED at [facility] on 01/20/18 for complaints of left sided blurred vision that resolved and then developing left sided headache behind the eye and some tingling in the left face and hand, which lasted about 10-15 minutes or so and then resolved. - Head CT (01/20) in the ED was negative. - CTA (01/20/18) --> Interval clipping of right MCA aneurysm otherwise not significantly changed. - Head MRA 01/20/18 - s/p right MCA aneurysm clipping which is MRI safe without any signs of spasm. - Neck MRA 01/20/18 - Negative MRA Carotids. - Previous 2D echo reviewed - Comgmt with Neurology & Cardiology - Cont. Brilinta and ASA 325mg daily - Cont. statin - Case d/w Cardiology, Dr. Chris (01/21/18) - will obtain outpt 3 week event monitor - if 3 week event monitor is non-diagnostic, then will likely pursue loop recorder - SCDs for DVT prophylaxis - supportive care - PT - MTHF gene pending - no new clinical events - discharge to home - see discharge orders HTN - Hold home meds for now - Monitor Hyperlipidemia - Cont. home meds Diabetes mellitus - Hold Metformin - NovoLog SSI - Accu check (2) CVA (cerebrovascular accident) Code(s): I63.9 - Cerebral infarction, unspecified Status: Acute (3) Hx of cerebral aneurysm repair Code(s): Z98.890 - Other specified postprocedural states; Z86.79 - Personal history of other diseases of the circulatory system Status: Acute (4) Diabetes Code(s): E11.9 - Type 2 diabetes mellitus without complications Status: Acute (5) HTN (hypertension) Code(s): I10 - Essential (primary) hypertension Status: Acute (6) Hyperlipidemia Code(s): E78.5 - Hyperlipidemia, unspecified Status: Acute (7) Left facial numbness Code(s): R20.0 - Anesthesia of skin Status: Acute
== END 2018-01-21 17:00 | disposition home or self-care (01) ==
LOC: NEPC 00:56 → NEDA 03:20 → N06 04:00
PROVIDERS: ADMIT Hospitalist; ATTEND Hospitalist
DX: E78.5 Hyperlipidemia, unspecified; Z98.890 Other specified postprocedural states; I10 Essential (primary) hypertension; E11.9 Type 2 diabetes mellitus without complications; Z79.02 Long term (current) use of antithrombotics/antiplatelets; R20.0 Anesthesia of skin; Z91.041 Radiographic dye allergy status; Z79.84 Long term (current) use of oral hypoglycemic drugs; Z86.73 Personal history of transient ischemic attack (TIA), and cerebral infarction without residual deficits; Z82.3 Family history of stroke; Z79.82 Long term (current) use of aspirin; Z87.891 Personal history of nicotine dependence; H53.9 Unspecified visual disturbance; Z86.79 Personal history of other diseases of the circulatory system